=== PATIENT | male | born 1955 | race Caucasian/White ===

== ENCOUNTER 2017-10-29 15:25 | Inpatient (IN) ==
[2017-10-29] MEDS ORDERED: 0.9 % Sodium Chloride 500 ML IVC ONE (15:36)
[2017-10-29] MEDS ORDERED: Aspirin 81 MG TAB.CHEW PO ONE (15:36)
[2017-10-29] MEDS ORDERED: Ondansetron 4 MG/2 ML VIAL IVP ONE (15:36)
[2017-10-29] MEDS ORDERED: 0.9 % Sodium Chloride 2,000 ML ONE (15:41)
[2017-10-29] MEDS ORDERED: Isovue-370 500 ML INFUS..BTL IV ONE (15:49)
--- NOTE | 2017-10-29 15:49 | Emergency Department Note ---
Disposition Clinical Impression: NSTEMI (non-ST elevated myocardial infarction) Hypotension Qualifiers: Hypotension type: unspecified hypotension type Qualified Code(s): I95.9 - Hypotension, unspecified Disposition: Admitted As Inpatient Condition: Critical Referrals: Andre Aquino MD [Primary Care Provider] - Time of Disposition: 20:31 Chest Pain HPI - General Stated Complaint: CP/CHRISTINE Time Seen by Provider: 10/29/17 15:27 Source: patient, family () Mode of arrival: ambulatory Limitations: no limitations Vital Signs Reviewed: Yes Nursing Notes Reviewed: Yes - History of Present Illness HPI Narrative: 62-year-old male history of CAD s/p CABG x5 (2007) presents the emergency department with chest pain difficulty breathing. [place] to arrival when he began experiencing a pressure chest pain to midsternum. He had some associated shortness of breath diaphoresis and nausea. He has a history of chronic abdominal pain for the past week or so with nausea as well. Over the past week or so he has been having some nausea vomiting and episodes diarrhea. On arrival here patient is hypotensive systolic 80-90s. He has 2 IVs which are flowing with normal saline. Denies any recent injury or trauma. Patient was given aspirin. At this time concern for aortic dissection possible pulmonary embolism a myocardial infarction. EKG performed 153 on arrival normal sinus rhythm with right bundle branch block that appears consistent with prior performed 2014. Will attempt to stabilize him and obtain CT of the chest and abdomen. Patient's been given Zofran for his nausea. Patients had multiple bypass and stents placed. He has known vessel disease and was told that there is no more further intervention recommended at this time. Pt complaint: chest pain - Related Data Home Medications Medication Instructions Recorded Confirmed Aspirin 325 mg PO DAILY 12/28/16 12/28/16 Atorvastatin [Lipitor] 40 mg PO HS 12/28/16 12/28/16 BuPROPion XL (24 HR) [Wellbutrin 150 mg PO DAILY 12/28/16 12/28/16 XL] Buspirone HCl [Buspar] 30 mg PO DAILY 12/28/16 12/28/16 Clopidogrel [Plavix] 75 mg PO DAILY 12/28/16 12/28/16 Diltiazem CD (24hr) [Cardizem CD] 120 mg PO DAILY 12/28/16 12/28/16 Fenofibrate Nanocrystallized 160 mg PO DAILY 12/28/16 12/28/16 [Triglide] Insulin Glargine [Lantus] 60 unit SQ HS 12/28/16 12/28/16 Insulin LISPRO [Humalog] 0 - 20 unit SQ TID PRN 12/28/16 12/28/16 Isosorbide MONOnitrate (24 HR) 60 mg PO DAILY 12/28/16 12/28/16 [Imdur] Lansoprazole [Prevacid] 30 mg PO DAILY 12/28/16 12/28/16 Lisinopril/Hydrochlorothiazide 2 each PO DAILY 12/28/16 12/28/16 [Zestoretic 20-12.5 mg Tablet] Melatonin 10 mg PO HS PRN 12/28/16 12/28/16 Nitroglycerin [Nitrostat] 0.4 mg SL Q5M PRN 12/28/16 12/28/16 Ranolazine [Ranexa] 1,000 mg PO BID 12/28/16 12/28/16 Terazosin HCl 2 mg PO DAILY 12/28/16 12/28/16 Topiramate [Topamax] 25 mg PO BID 12/28/16 12/28/16 Trazodone HCl 50 mg PO HS 12/28/16 12/28/16 Venlafaxine XR (24 HR) [Effexor XR] 150 mg PO DAILY 12/28/16 12/28/16 Allergies Allergy/AdvReac Type Severity Reaction Status Date / Time acetaminophen [From Percocet] Allergy Hives Verified 12/28/16 08:52 Oxycodone [From Percocet] Allergy Hives Verified 12/28/16 08:52 Hydromorphone [From Dilaudid] AdvReac Chest Pain Verified 12/28/16 08:52 All systems ED: reviewed and negative except as stated. Review of Systems: As Per HPI Chest Pain PMH - Past Medical History Medical history: Reports: arthritis, cancer, coronary artery disease, CVA, diabetes, hyperlipidemia, hypertension, renal disease Surgical history: Reports: angioplasty/stent, cancer surgery, cholecystectomy, coronary bypass (CABG), knee replacement Psychiatric history: Reports: anxiety, depression, panic disorder - Social History Smoking Status: Former smoker Alcohol use: Reports: none Drug use: Reports: none Physical Exam - General Limitations: no limitations General appearance: alert, in no apparent distress - Head Head exam: atraumatic, normocephalic, normal inspection - Eye Eye exam: Present: normal appearance, PERRL, EOMI - ENT ENT exam: normal exam, normal oropharynx, mucous membranes moist - Neck Neck exam: Present: normal inspection, full ROM, trachea midline - Chest Chest inspection: Present: normal inspection, symmetric chest wall rise, tenderness (midsternum) - Respiratory Respiratory exam: Present: normal lung sounds bilaterally - Cardiovascular Cardiovascular exam: Present: regular rate, normal rhythm, normal heart sounds - Abdominal Exam Abdominal exam: Present: soft, tenderness, normal bowel sounds. Absent: distention, guarding, rebound, rigidity, pulsatile mass Abdominal tenderness: Present: diffuse - Extremities Exam Extremities exam: Present: normal inspection, full ROM, normal capillary refill. Absent: tenderness, pedal edema - Neurological Exam Neurological exam: Present: alert, oriented X3 - Psychiatric Psychiatric exam: Present: normal affect, normal mood - Skin Skin exam: Present: warm, dry, intact, normal color. Absent: rash, cyanosis, diaphoresis Course Course Narrative: Patient had minimal response with the fluid bolus. Chest x-ray showed some vascular congestion concerning for possible right heart failure or possible PE. Patient initially was meditating well with systolic of 80 it now appears slightly confused. Patient was sent to CT scan for chest abdomen and pelvis to evaluate for dissection pulmonary embolism. This was safely performed with nursing staff to follow him to the scanner. Patient came back in stable condition. - Reevaluation(s) Reevaluation #1: Review of the CT scans showed no acute abnormality consistent with pulmonary embolism or dissection. Suspect this is more of a and Tristen given his elevated troponin. Patient has been placed given full dose aspirin. We have consulted with interventional cardiologists and they agree with this management. At this time patient's blood pressure is responding to legal fed that was initially infused through the peripheral line but has been switch after right femoral central venous catheter has been placed. Patient will require intensive care unit admission given his hypotension and NSTEMI critical condition. Impression is hypotension and NSTEMI/ Reevaluation #2: Spoke to accepting hospitalist Dr. Rainey, agree that at this time arterial line is not necessary. Patient has right femoral CVC placed successfully. - Consultations Consultation #1: Spoke to on-call acting manager Dr. Cabral regarding patient's status. Given his persistent hypotension despite 2 L of normal saline fluid bolus he continues to be hypotensive. Given his extensive cardiac history suspect this is likely cardiac in nature. His EKG did not show any acute ischemic findings. Consistent incomplete right bundle branch block. Patients troponin was elevated 0.69 concerning for NSTEMI. We called requesting any additional therapy or intervention. Dr. Cabral Blease with is elevated creatinine this could be likely dehydration related in the troponin elevation is typically seen and bypass patients with their dehydrated. He did recommend they suffered chest x-ray that there could be a heart failure components into be cautious with any additional fluid resuscitation. He did recommend inotropic such as levophed to help with his blood pressure. If he does not respond with the basal pressor possible aortic balloon pump would be considered. Recommend to repeat the troponin and called personnel research psychologist back with any additional changes. Time: 17:30 Consultation #2: The patient's troponin has downtrending. He is more awake and oriented. His blood pressure has responded to the basal pressor. At this time he appropriated for intensive care unit. Given his history of severe vessel disease there is no emergent need for intervention. Consideration for short- term aortic balloon pump hypotension persists. Patient has a right femoral venous central catheter placed to allow vasopressor usage. Patient accepted for ICU admission by Dr. Ruiz. Vital Signs Temperature 98.8 F 10/29/17 15:32 Pulse Rate 100 10/29/17 15:32 Respiratory Rate 18 10/29/17 15:32 Blood Pressure 80/61 10/29/17 15:32 O2 Sat by Pulse Oximetry 96 10/29/17 15:32 Temperature 98.8 F 10/29/17 15:32 Pulse Rate 76 10/29/17 20:19 Respiratory Rate 18 10/29/17 20:19 Blood Pressure 113/65 10/29/17 20:19 O2 Sat by Pulse Oximetry 96 10/29/17 20:19 Oxygen Delivery Oxygen Delivery Room Air Procedures - Central Line Placement Right Femoral Central Line Inserted*: Yes Central Line Catheter Replacement*: No Central Line Insertion: elective, emergent Consent Obtained: written consent Procedural Pause: verify patient name and date of , timeout performed per policy, venancio and assess the site, assemble equipment and verify supplies, perform hand hygiene Patient Placed on Monitor/Pulse Ox: Yes During the Procedure: clinician is wearing sterile gloves, cap, mask,& gown during insertion, sterile field and sterile technique are maintained, patient's face is covered with drape or mask and wearing a cap, everyone in room is wearing a mask Central Line Prep: Chlorhexidine scrub Prep the Procedure Site: apply chloraprep to the skin using a back and forth scrubbing motion, apply chloraprep for 30 seconds (upper body), 1-2 min ( femoral sites), allow prep to dry, drape the patient with a full body drape Local Anesthetic: lidocaine 1% Amount of anesthesia used (mL): 3 Ultrasound Used for Placement: Yes Central Line Lumen Inserted: triple Post Procedure: sutured in place, good blood return, all ports aspirated, flushed, capped, sterile dressing applied, guide wire removed and visualized Patient Tolerated Procedure: well, no complications Complications: none Name of Clinician Inserting Central Line: Craig Hull DO Date: 10/29/17 Time: 20:34 Chest Pain - MDM Narrative Medical decision making narrative: Patient was discussed with my attending physician who agrees with ED management and final disposition. They independently evaluated the patient. Please refer to their attestation to this encounter for additional information. This note was generated by [employer] voice recognition software and as a result grammatical or spelling errors may occur using this program. - Medical Records Medical records reviewed: Yes I reviewed the patient's medical records. - Lab Data Lab results reviewed: Yes I reviewed the patient's lab results. Result diagrams: 10/29/17 15:53 10/29/17 15:53 Lab Results 10/29/17 10/29/17 10/29/17 Range/Units 15:39 15:53 15:53 WBC (4.3-11.1) K/mcL RBC (4.19-5.50) M/mcL Hgb (12.9-16.9) g/dL Hct (37.5-50.1) % MCV (83.0-100.0) fL MCH (28.0-33.3) pg MCHC (31.6-35.5) g/dL RDW (11.5-14.5) % Plt Count (140-400) K/mcL MPV (9.4-12.4) fL Seg Neutrophils % % Lymphocytes % % Monocytes % % Eosinophils % % Neutrophils # (1.6-8.9) K/mcL Lymphocytes # (0.6-4.6) K/mcL Monocytes # (0.0-1.3) K/mcL Eosinophils # (0.0-0.6) K/mcL Reactive Lymphocytes (Not Present) Platelet Estimate (Normal) PT 10.6 (9.4-12.1) Seconds INR 1.0 APTT 28.7 (26.0-36.0) Seconds Sodium 132 L (136-145) mEq/L Potassium 4.0 (3.5-5.1) mEq/L Chloride 98 (98-107) mEq/L Carbon Dioxide 22 L (23-29) mEq/L BUN 21 (8-23) mg/dL Creatinine 1.80 H (0.70-1.30) mg/dL Est GFR ( Amer) 46 L (> 60) Est GFR (Non-Af Amer) 38 L (> 60) BUN/Creatinine Ratio 12 (6-26) Glucose 91 (70-105) mg/dL POC Glucose 138 H (70-99) mg/dL Calculated Osmolality 277 L (280-300) Calcium 9.5 (8.6-10.3) mg/dL Total Bilirubin 0.6 (0.3-1.0) mg/dL Direct Bilirubin 0.2 (0.0-0.2) mg/dL Indirect Bilirubin 0.4 (0.0-1.2) mg/dL AST 20 (13-39) Units/L ALT 21 (7-52) Units/L Alkaline Phosphatase 68 (34-104) Units/L Troponin I (< 0.04) ng/mL B-Natriuretic Peptide (Less than 100) pg/mL Serum Total Protein 6.7 (6.4-8.9) g/dL Albumin 4.3 (3.5-5.7) g/dL Globulin 2.4 (2.4-3.5) g/dL Albumin/Globulin Ratio 1.8 (1.1-2.2) Beta-Hydroxybutyric Acd (0.02-0.27) mmol/L Blood Type Antibody Screen 10/29/17 10/29/17 10/29/17 Range/Units 15:53 15:53 15:53 WBC 8.9 (4.3-11.1) K/mcL RBC 4.04 L (4.19-5.50) M/mcL Hgb 13.5 (12.9-16.9) g/dL Hct 37.4 L (37.5-50.1) % MCV 92.6 (83.0-100.0) fL MCH 33.4 H (28.0-33.3) pg MCHC 36.1 H (31.6-35.5) g/dL RDW 12.4 (11.5-14.5) % Plt Count 299 (140-400) K/mcL MPV 8.8 L (9.4-12.4) fL Seg Neutrophils % 61.0 % Lymphocytes % 34.0 % Monocytes % 4.0 % Eosinophils % 1.0 % Neutrophils # 5.4 (1.6-8.9) K/mcL Lymphocytes # 3.0 (0.6-4.6) K/mcL Monocytes # 0.4 (0.0-1.3) K/mcL Eosinophils # 0.1 (0.0-0.6) K/mcL Reactive Lymphocytes Present A (Not Present) Platelet Estimate Normal (Normal) PT (9.4-12.1) Seconds INR APTT (26.0-36.0) Seconds Sodium (136-145) mEq/L Potassium (3.5-5.1) mEq/L Chloride (98-107) mEq/L Carbon Dioxide (23-29) mEq/L BUN (8-23) mg/dL Creatinine (0.70-1.30) mg/dL Est GFR ( Amer) (> 60) Est GFR (Non-Af Amer) (> 60) BUN/Creatinine Ratio (6-26) Glucose (70-105) mg/dL POC Glucose (70-99) mg/dL Calculated Osmolality (280-300) Calcium (8.6-10.3) mg/dL Total Bilirubin (0.3-1.0) mg/dL Direct Bilirubin (0.0-0.2) mg/dL Indirect Bilirubin (0.0-1.2) mg/dL AST (13-39) Units/L ALT (7-52) Units/L Alkaline Phosphatase (34-104) Units/L Troponin I (< 0.04) ng/mL B-Natriuretic Peptide 44 (Less than 100) pg/mL Serum Total Protein (6.4-8.9) g/dL Albumin (3.5-5.7) g/dL Globulin (2.4-3.5) g/dL Albumin/Globulin Ratio (1.1-2.2) Beta-Hydroxybutyric Acd < 0.10 (0.02-0.27) mmol/L Blood Type Antibody Screen 10/29/17 10/29/17 10/29/17 Range/Units 15:53 17:39 17:39 WBC (4.3-11.1) K/mcL RBC (4.19-5.50) M/mcL Hgb (12.9-16.9) g/dL Hct (37.5-50.1) % MCV (83.0-100.0) fL MCH (28.0-33.3) pg MCHC (31.6-35.5) g/dL RDW (11.5-14.5) % Plt Count (140-400) K/mcL MPV (9.4-12.4) fL Seg Neutrophils % % Lymphocytes % % Monocytes % % Eosinophils % % Neutrophils # (1.6-8.9) K/mcL Lymphocytes # (0.6-4.6) K/mcL Monocytes # (0.0-1.3) K/mcL Eosinophils # (0.0-0.6) K/mcL Reactive Lymphocytes (Not Present) Platelet Estimate (Normal) PT (9.4-12.1) Seconds INR APTT (26.0-36.0) Seconds Sodium (136-145) mEq/L Potassium (3.5-5.1) mEq/L Chloride (98-107) mEq/L Carbon Dioxide (23-29) mEq/L BUN (8-23) mg/dL Creatinine (0.70-1.30) mg/dL Est GFR ( Amer) (> 60) Est GFR (Non-Af Amer) (> 60) BUN/Creatinine Ratio (6-26) Glucose (70-105) mg/dL POC Glucose (70-99) mg/dL Calculated Osmolality (280-300) Calcium (8.6-10.3) mg/dL Total Bilirubin (0.3-1.0) mg/dL Direct Bilirubin (0.0-0.2) mg/dL Indirect Bilirubin (0.0-1.2) mg/dL AST (13-39) Units/L ALT (7-52) Units/L Alkaline Phosphatase (34-104) Units/L Troponin I 0.69 H* 0.52 H* (< 0.04) ng/mL B-Natriuretic Peptide (Less than 100) pg/mL Serum Total Protein (6.4-8.9) g/dL Albumin (3.5-5.7) g/dL Globulin (2.4-3.5) g/dL Albumin/Globulin Ratio (1.1-2.2) Beta-Hydroxybutyric Acd (0.02-0.27) mmol/L Blood Type A POSITIVE Antibody Screen NEGATIVE - Radiology Data Radiology results reviewed: Yes I reviewed the patient's radiology results. Chest X-Ray 10/29/17 15:37 IMPRESSION: 1. No acute findings in the chest. 2. Pulmonary vascular congestion. D/ / Rene Arnold MD / Rene Arnold MD Interpreting Provider: Rene Arnold MD Abdomen/Pelvis CTA 10/29/17 15:49 IMPRESSION: No acute process in the chest, abdomen or pelvis. D/ / 10/29/2017 18:16:55 Kaushik Beltran MD / katherine Interpreting Provider: Kaushik Beltran MD Chest CTA 10/29/17 15:49 IMPRESSION: No acute process in the chest, abdomen or pelvis. D/ / 10/29/2017 18:16:55 Kaushik Beltran MD / katherine Interpreting Provider: Kaushik Beltran MD Head CT 10/29/17 17:15 IMPRESSION: No acute intracranial abnormality. D/ / 10/29/2017 17:59:53 Kaushik Beltran MD / katherine Interpreting Provider: Kaushik Beltran MD - EKG Data EKG attestation: Yes I reviewed and interpreted this EKG. EKG results narrative: EKG performed 1537 normal sinus rhythm 98 beats per minute, incomplete right bundle branch block QRS 98, no ST elevation or depression, old Q waves in inferior leads, no T wave inversion. Compared to his prior EKG performed 2014 shows similar consistent findings of a incomplete right bundle branch block. No acute ischemic changes at this time. Heart Score - Score History: Slightly Suspicious EKG: Non Specific repolarisation Disturbance Age: 45-65 Risk Factors: Equal/Greater than 3 risk factor or history of atherosclerotic disease Troponin: Greater than 3x normal limit HEART Score Total: 6 Critical Care Time Critical Care Time: Yes Total Critical Care Time: 70 Attestation: Critical care time 35 minutes managing patient's chest pain and hypotension. Attestation Statement - Attestation Attestation: Patient was seen with resident physician. I reviewed the history, physical, assessment and plan, and agree with the findings. I also personally evaluated this patient and had [id number] time with this patient. 62-year-old male presents to the emergency Department chief complaint of chest pressure. Midsternal radiates across both sides it does not radiate to other areas. He said some minimal abdominal discomfort with it. Does not radiate to his back or to his shoulder. He has a history of coronary artery disease he has had a 5 vessel bypass around 10 years ago. He is also had stents one time 9010 years ago. He said he is unable to have additional stents because of the severity of disease. He also complains of headache. He did not take any nitroglycerin her blood pressure medicine today. Denies fevers chills. He has had some shortness of breath with the chest pain. Remainder review of systems reviewed and negative except as above. Physical exam vital signs patient is hypotensive on arrival. Heart rate was stable. ENT is unremarkable. Heart regular rhythm and rate. Lungs clear. Abdomen soft minimal tenderness in the midepigastric area. Extremities no swelling otherwise unremarkable. Neurologically intact. Skin no rashes. Psych patient is anxious. ED course multiple IV sites were obtained. Patient was started on intravenous hydration. His blood pressure was too low for nitrates or for pain medication. He was given an aspirin. After 2 L he continued to be hypotensive. We had a delay with getting his troponin result from the laboratory. After his fluids were given he was mentating well but his blood pressure was still 88/50's. We obtained a CT scan of the chest abdomen pelvis to rule out dissection and PE. We sent a full team on environmental monitoring technician with him because of his hypotension. We also discussed the case with interventional cardiology. He recommended starting him on a pressor his blood pressure up. We eventually were able to titrate to systolic of about 120 which improved most of his symptoms including chest pain. His EKG did not show acute ischemic change, and a repeat EKG also did not show ischemic changes. It is unclear if his hypotension is related to systolic dysfunction dehydration or some combination of all the above. He did not appear to be anemic to have significant blood loss. Because of his need for pressors and ICU admission a central line was placed into the right groin. This was performed by resident physician. I assisted and observed the entire procedure. Critical care time charted was exclusive of time it took to do the central line. We spoke with interventional cardiology and the hospitalist service to arrange for admission to the ICU. Patient was doing well at the time of transport.
[2017-10-29 16:10] LABS: Eosinophils # 0.1 K/mcL (0.0-0.6); Hematocrit 37.4 % (37.5-50.1); Hemoglobin 13.5 g/dL (12.9-16.9); Mean Corpuscular HGB Conc 36.1 g/dL (31.6-35.5); Mean Corpuscular Hemoglobin 33.4 pg (28.0-33.3); Mean Corpuscular Volume 92.6 fL (83.0-100.0); Mean Platelet Volume 8.8 fL (9.4-12.4); Platelet Count 299 K/mcL (140-400); Red Blood Count 4.04 M/mcL (4.19-5.50); Red Cell Distribution Width 12.4 % (11.5-14.5)
[2017-10-29 16:15] LABS: Prothrombin Time 10.6 Seconds (9.4-12.1)
[2017-10-29 16:18] LABS: Activated Partial Thrombo Time 28.7 Seconds (26.0-36.0)
[2017-10-29 16:32] LABS: Monocytes # 0.4 K/mcL (0.0-1.3); Neutrophils # 5.4 K/mcL (1.6-8.9); Platelet Estimate Normal (Normal); Reactive Lymphocytes Present (Not Present)
[2017-10-29 16:35] LABS: Albumin 4.3 g/dL (3.5-5.7); Albumin/Globulin Ratio 1.8 (1.1-2.2); Bilirubin,Direct 0.2 mg/dL (0.0-0.2); Bilirubin,Indirect 0.4 mg/dL (0.0-1.2); Bilirubin,Total 0.6 mg/dL (0.3-1.0); Globulin 2.4 g/dL (2.4-3.5); Total Protein 6.7 g/dL (6.4-8.9)
[2017-10-29] MEDS ORDERED: 0.9 % Sodium Chloride 1,000 ML ONE ×2 (16:54→18:48)
[2017-10-29 17:13] LABS: Calcium 9.5 mg/dL (8.6-10.3)
[2017-10-29] MEDS: Norepinephrine 4 MG in D5% in Water 250 ML IVC SCH (18:38)
[2017-10-29] MEDS ORDERED: OXYCODONE Oral CONC 10 MG/0.5 ML ORAL.SYG SL PRN ×2 (20:02)
[2017-10-29] MEDS ORDERED: Naloxone 0.4 MG/ML INJ IVP PRN ×2 (20:02)
[2017-10-29] MEDS ORDERED: D5% in Water 1,000 ML IVC PRN (20:05)
[2017-10-29] MEDS ORDERED: Dextrose Gel 15 GM/37.5 ML TUBE PO PRN ×2 (20:05)
[2017-10-29] MEDS ORDERED: *HR* Dextrose 50 % in Water (Syg) 50 ML SYRINGE IVP PRN (20:05)
[2017-10-29] MEDS ORDERED: *HR* Heparin 5,000 UNIT/ML VIAL IVP ONE (20:06)
[2017-10-29] MEDS ORDERED: *HR* Heparin 5,000 UNIT/ML VIAL IVP PRN ×2 (20:06)
[2017-10-29] MEDS ORDERED: Insulin LISPRO 300 UNITS/3 ML VIAL SQ SCH (21:00)
--- NOTE | 2017-10-29 21:26 | Internal Med History&Physical ---
<Jonatan Daniels - Last Filed: 10/29/17 21:49> Date of Encounter: 10/29/17 Time of Encounter: 21:28 Assessment and Plan (1) NSTEMI (non-ST elevated myocardial infarction) Current visit: Yes Status: Acute The patient presents with chest pain, dyspnea, visual changes and hypotension with troponin elevation of 0.69 without ischemic EKG changes. Continue to trend serial troponins. Repeat troponin is down trending. Suspect right sided insult given his hemodynamic instability. Interventional cardiology consulted by the emergency department and recommended vasopressor support. Heparin gtt NPO at midnight (2) Shock Current visit: Yes Status: Acute Presented hypotensive refractory to IV fluid resuscitation. NSTEMI with peak troponin of 0.69. Potential for right-sided involvement given hypotension. Continue Levophed with goal MAP >60 Echo ordered (3) NÉSOTR (acute kidney injury) Current visit: Yes Status: Acute Serum creatinine 1.80. He did receive a significant dye load for angiogram. Daily renal function panel. Continue IV fluid hydration. Avoid nephrotoxic agents. 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 transplanted heart: unspecified whether [place] or transplanted heart Associated angina: with unspecified angina Qualified Code (s): I25.119 - Atherosclerotic heart disease of [place] coronary artery with unspecified angina pectoris (6) Hyperlipidemia Current visit: Yes Status: Chronic NPO Hold statin Qualifiers: Hyperlipidemia type: unspecified Qualified Code(s): E78.5 - Hyperlipidemia , unspecified (7) Hypertension Current visit: Yes Status: Chronic Hold antihypertensives in the setting of shock Qualifiers: Hypertension type: unspecified Qualified Code(s): I10 - Essential (primary ) hypertension Internal Medicine - H&P: HPI Chief complaint: chest pain, visual changes Admitted From: Emergency Dept Plans for Post Hospital Care: Home History of present illness: Mr. Marquis is a 62 year old male with a past medical history of CABG in 2007 , one vessel stent in 2009, diabetes, hypertension, hyperlipidemia who presented to the emergency department on 10/29/17 with complaints of chest pain, shortness of breath, diaphoresis, nausea and visual changes. Patient reports he was at his usual state of health until around 2 PM [place]. He reports that he first had changes in vision and it seemed to be widely. He reports not long after he started developing chest pain that went across his chest with associated shortness of breath, diaphoresis and nausea. Reports the symptoms are actually dissimilar to his prior cardiac symptoms when he required a stent and bypass. He denies any recent illnesses. He otherwise localizes no other complaints. Patient seen and evaluated at bedside in the emergency department. He vocalizes no new complaints. He was noted to be hypotensive upon arrival. His workup there revealed an EKG with normal sinus rhythm with occasional PACs with normal intervals and ST-T wave appearance. He does have Q waves in lead 3 and aVF. Initial troponin of 0.6 sign which actually improved to 0.5 to on repeat. Also noted to have an acute kidney injury with a serum creatinine of 1.8. He did receive a significant dye load for an angiogram of his chest abdomen and pelvis. Angiogram of the chest abdomen and pelvis as well as head CT without acute abnormality. Despite 2 L of IV fluids he remained hypotensive necessitating vasopressor support. Interventional cardiology was consulted and recommended levophed. The patient is admitted to the ICU under the care of the hospitalist service for further management and evaluation. Past Med Surg Social Fam HX - Past Medical History Attestation: Yes The following information was validated with the patient. Source: patient Medical history: arthritis, cancer, coronary artery disease, CVA, diabetes, hyperlipidemia, hypertension, renal disease Psychiatric history: anxiety, depression, panic disorder - Past Surgical History Surgical History: angioplasty/stent, cancer surgery, cholecystectomy, coronary bypass (CABG), knee replacement - Social History Smoking Status: Former smoker Smokeless Tobacco Status: No Alcohol use: none Drug use: none Internal Medicine - H&P: Meds Aspirin 325 mg PO DAILY 12/28/16 [History] Atorvastatin [Lipitor] 40 mg PO HS 12/28/16 [History] BuPROPion XL (24 HR) [Wellbutrin XL] 150 mg PO DAILY 12/28/16 [History] Buspirone HCl [Buspar] 30 mg PO DAILY 12/28/16 [History] Clopidogrel [Plavix] 75 mg PO DAILY 12/28/16 [History] Diltiazem CD (24hr) [Cardizem CD] 120 mg PO DAILY 12/28/16 [History] Fenofibrate Nanocrystallized [Triglide] 160 mg PO DAILY 12/28/16 [History] Insulin Glargine [Lantus] 60 unit SQ HS 12/28/16 [History] Insulin LISPRO [Humalog] 0 - 20 unit SQ TID PRN 12/28/16 [History] Isosorbide MONOnitrate (24 HR) [Imdur] 60 mg PO DAILY 12/28/16 [History] Lansoprazole [Prevacid] 30 mg PO DAILY 12/28/16 [History] Lisinopril/Hydrochlorothiazide [Zestoretic 20-12.5 mg Tablet] 2 each PO DAILY [History] Melatonin 10 mg PO HS PRN 12/28/16 [History] Nitroglycerin [Nitrostat] 0.4 mg SL Q5M PRN 12/28/16 [History] Ranolazine [Ranexa] 1,000 mg PO BID 12/28/16 [History] Terazosin HCl 2 mg PO DAILY 12/28/16 [History] Topiramate [Topamax] 25 mg PO BID 12/28/16 [History] Trazodone HCl 50 mg PO HS 12/28/16 [History] Venlafaxine XR (24 HR) [Effexor XR] 150 mg PO DAILY 12/28/16 [History] 3 Allergy/AdvReac Type Severity Reaction Status Date / Time acetaminophen [From Percocet] Allergy Hives Verified 12/28/16 08:52 Oxycodone [From Percocet] Allergy Hives Verified 12/28/16 08:52 Hydromorphone [From Dilaudid] AdvReac Chest Pain Verified 12/28/16 08:52 All Systems PM: A 10-system review of systems was performed and is negative for pertinent findings except as documented above in the HPI. - Constitutional Constitutional: as per HPI - EENT Eyes: as per HPI Ears: as per HPI Nose, mouth and throat: as per HPI - Breasts Breasts: as per HPI - Cardiovascular Cardiovascular ROS IM: as per HPI - Respiratory Respiratory: as per HPI - Gastrointestinal Gastrointestinal: as per HPI - Genitourinary Genitourinary ROS male: as per HPI - Musculoskeletal Musculoskeletal ROS IM: as per HPI - Integumentary Integumentary IM: as per HPI - Neurological Neurological ROS: as per HPI - Psychiatric Psychiatric: as per HPI - Endocrine Endocrine IM: as per HPI - Hematologic/Lymphatic Hematologic/Lymphatic: as per HPI - Allergic/Immunologic Allergic/Immunologic: as per HPI - Constitutional Vitals: Temp Pulse Resp BP Pulse Ox 98.8 F 76 18 133/74 96 10/29/17 15:32 10/29/17 20:19 10/29/17 21:12 10/29/17 21:12 10/29/17 20:19 General appearance: Present: pleasant, no acute distress, answers questions appropriately - Head Head exam: Present: atraumatic, normal inspection, normocephalic - Eye Eye exam: Present: normal appearance - Neck Neck exam general surgery: Present: full ROM - Respiratory Respiratory exam: Present: CTAB - Cardiovascular Cardiovascular exam: Present: RRR, +S1, +S2. Absent: diastolic murmur, systolic murmur - GI/Abdominal GI/Abdominal exam: Present: soft. Absent: distended, guarding - Extremities Exam Extremities exam: Present: full ROM, normal inspection - Neurological Exam Neurological exam: Present: alert, no focal deficits - Skin Skin exam: Present: dry, intact Internal Med - H&P Results - Labs CBC & Chem 7: 10/29/17 15:53 10/29/17 15:53 - EKG Data -: EKG Interpreted by Myself (Sinus rhythm with normal intervals and nml ST-T segments with inf Q waves) <Parrish Rainey T - Last Filed: 10/29/17 23:11> Date of Encounter: 10/29/17 Internal Medicine - H&P: HPI History of present illness: Mr. Marquis is a 62 year old male All Systems PM: A 10-system review of systems was performed and is negative for pertinent findings except as documented above in the HPI. - Constitutional Vitals: Temp Pulse Resp BP Pulse Ox 98.8 F 78 16 103/65 97 10/29/17 15:32 10/29/17 22:03 10/29/17 22:03 10/29/17 22:03 10/29/17 22:03 Internal Med - H&P Results - Labs CBC & Chem 7: 10/29/17 15:53 10/29/17 15:53 - Attending Attestation 62-year-old male seen and evaluated in the emergency room at the bedside. Past medical history of coronary artery disease status post coronary artery bypass graft several years ago, diabetes mellitus, hyperlipidemia, and hypertension. Patient presented with sudden history of blurry vision and seeing floaters associated with substernal chest pain. He had chest pain it was substernal central pressure-like and non-radiating. There was associated shortness of breath at rest. The patient presented to the ER 45 minutes after onset of symptoms. He was hypotensive on presentation, initial troponin was 0.68, EKG was unremarkable, patient presented with acute kidney injury with creatinine of 1.8. Chest x-ray was unremarkable except for pulmonary vascular congestion, BNP was negative. During evaluation, patient was lying flat not in any form of distress, chest is clear to auscultation bilaterally, negative insight flat, no new murmurs, S1-S2 only. Regular rhythm. Abdomen is benign. No pedal edema. Right femoral central venous access intact with clean dressing. Labs and imaging reviewed and stated as above. Patient will be admitted to the intensive care unit for management of an STEMI with associated cardiogenic shock suspected right-sided myocardial infarction cardiology has been consulted by the ER, start the patient on heparin drip, continue aspirin, hold home medications including long-acting nitrates, continue Levophed. Echocardiogram in the morning. Condition is critical, prognosis is fair. Plan of care discussed with patient. The rest of the details as in Dr. Nowak documentation.
[2017-10-29] MEDS: 0.9 % Sodium Chloride 1,000 ML IVC SCH (23:25)
[2017-10-29] MEDS: Heparin 25,000 UNIT/500 ML D5W 25,000 UNIT/500 ML BAG IVC SCH (23:55)
[2017-10-30 05:34] LABS: Eosinophils # 0.1 K/mcL (0.0-0.6); Hematocrit 34.9 % (37.5-50.1); Hemoglobin 12.6 g/dL (12.9-16.9); Lymphocytes # 2.1 K/mcL (0.6-4.6); Mean Corpuscular HGB Conc 36.1 g/dL (31.6-35.5); Mean Corpuscular Hemoglobin 33.6 pg (28.0-33.3); Mean Corpuscular Volume 93.1 fL (83.0-100.0); Mean Platelet Volume 8.9 fL (9.4-12.4); Platelet Count 255 K/mcL (140-400); Red Blood Count 3.75 M/mcL (4.19-5.50); Red Cell Distribution Width 13.1 % (11.5-14.5)
[2017-10-30 05:52] LABS: BUN/Creatinine Ratio 17 (6-26); Blood Urea Nitrogen 20 mg/dL (8-23); Calcium 8.7 mg/dL (8.6-10.3); Carbon Dioxide 24 mEq/L (23-29); Chloride 104 mEq/L (98-107); Glucose 242 mg/dL (70-105); Osmolality,Calculated 293 (280-300); Potassium 3.8 mEq/L (3.5-5.1); Sodium 136 mEq/L (136-145); eGFR For African Americans > 60 (> 60); eGFR For Non-African Americans > 60 (> 60)
[2017-10-30 05:54] LABS: Monocytes # 0.4 K/mcL (0.0-1.3); Platelet Estimate Normal (Normal)
[2017-10-30 05:55] LABS: Reactive Lymphocytes Present (Not Present); Toxic Granulation Present (Not Present)
[2017-10-30] MEDS ORDERED: Insulin LISPRO 300 UNITS/3 ML VIAL SQ SCH (07:30)
[2017-10-30 07:31] LABS: Estimated Average Glucose 243 mg/dl; Hemoglobin A1C 10.1 %
[2017-10-30] MEDS: 0.9 % Sodium Chloride 1,000 ML IVC SCH (08:10)
--- NOTE | 2017-10-30 08:11 | Pulmonology Consult Note ---
<Edgardo Presley M - Last Filed: 10/30/17 10:22> Date of Encounter: 10/30/17 Medications and Allergies Aspirin 325 mg PO DAILY 12/28/16 [History] Buspirone HCl [Buspar] 30 mg PO DAILY 12/28/16 [History] Clopidogrel [Plavix] 75 mg PO DAILY 12/28/16 [History] Diltiazem CD (24hr) [Cardizem CD] 120 mg PO DAILY 12/28/16 [History] Fenofibrate Nanocrystallized [Triglide] 160 mg PO DAILY 12/28/16 [History] Insulin Glargine [Lantus] 60 unit SQ HS 12/28/16 [History] Insulin LISPRO [Humalog] 0 - 20 unit SQ TID PRN 12/28/16 [History] Isosorbide MONOnitrate (24 HR) [Imdur] 180 mg PO DAILY 12/28/16 [History] Lansoprazole [Prevacid] 30 mg PO DAILY 12/28/16 [History] Lisinopril/Hydrochlorothiazide [Zestoretic 20-12.5 mg Tablet] 2 each PO DAILY [History] Melatonin 10 mg PO HS PRN 12/28/16 [History] Nitroglycerin [Nitrostat] 0.4 mg SL Q5M PRN 12/28/16 [History] Ranolazine [Ranexa] 1,000 mg PO BID 12/28/16 [History] Terazosin HCl 2 mg PO DAILY 12/28/16 [History] Trazodone HCl 50 mg PO HS 12/28/16 [History] Venlafaxine XR (24 HR) [Effexor XR] 150 mg PO DAILY 12/28/16 [History] Atorvastatin Calcium [Lipitor] 80 mg PO HS 10/30/17 [History] BuPROPion XL (24 HR) [Wellbutrin XL] 300 mg PO DAILY 10/30/17 [History] Gabapentin [Neurontin] 800 mg PO TID 10/30/17 [History] 3 Allergy/AdvReac Type Severity Reaction Status Date / Time acetaminophen [From Percocet] Allergy Hives Verified 12/28/16 08:52 Oxycodone [From Percocet] Allergy Hives Verified 12/28/16 08:52 Hydromorphone [From Dilaudid] AdvReac Chest Pain Verified 12/28/16 08:52 All Systems: The remainder of the systems were reviewed and are negative Physical Examination Vital Signs: Vital Signs, Last 4 Hours Pulse Resp BP Pulse Ox 10/30/17 09:00 93 18 114/71 96 10/30/17 08:00 96 18 118/73 96 10/30/17 07:00 74 18 103/72 94 10/30/17 06:00 91 16 130/75 95 Results - Laboratory Findings CBC and BMP: 10/30/17 05:21 10/30/17 05:21 PT/INR, D-dimer PT 10.6 Seconds (9.4-12.1) 10/29/17 15:53 Abnormal lab findings: Abnormal lab results WBC 11.5 K/mcL (4.3-11.1) H 10/30/17 05:21 RBC 3.75 M/mcL (4.19-5.50) L 10/30/17 05:21 Hgb 12.6 g/dL (12.9-16.9) L 10/30/17 05:21 Hct 34.9 % (37.5-50.1) L 10/30/17 05:21 MCH 33.6 pg (28.0-33.3) H 10/30/17 05:21 MCHC 36.1 g/dL (31.6-35.5) H 10/30/17 05:21 MPV 8.9 fL (9.4-12.4) L 10/30/17 05:21 Neutrophils # 9.0 K/mcL (1.6-8.9) H 10/30/17 05:21 Reactive Lymphocytes Present (Not Present) A 10/30/17 05:21 Toxic Granulation Present (Not Present) A 10/30/17 05:21 APTT 36.1 Seconds (26.0-36.0) H 10/30/17 05:21 Glucose 242 mg/dL (70-105) H 10/30/17 05:21 POC Glucose 106 mg/dL (70-99) H 10/29/17 21:21 Hemoglobin A1c 10.1 % (-5.6) H 10/30/17 05:21 Troponin I 0.29 ng/mL (< 0.04) H* 10/30/17 05:21 TSH 0.227 mcIU/mL (0.340-5.600) L 10/30/17 05:21 - Clinical Findings Intake & Output: Intake & Output 10/29/17 10/30/17 10/30/17 23:59 07:59 15:59 Intake Total 50 / 50 1467 / 1467 365 / 365 Output Total 550 / 550 2975 / 2975 Balance -500 / -500 -1508 / -1508 365 / 365 Weight 96.2 kg Consult Discharge Plan - Plan Referrals: Andre Aquino MD [Primary Care Provider] - - Attending Attestation I examined this patient and my medical decision-making was reviewed with the Resident Physician. I agree with the documented findings, disposition and treatment plan as described except to the extent set forth below. Patient seen and examined. Labs, radiology, chart personally reviewed. 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 Cardiology consult. Patient is on heparin. GI: Nutrition per dietary and GI prophylaxis per routine Heme: DVT prophylaxis per routine ID: No evidence of infections. Renal; urine out put and renal funtion reviewed Endorcine: blood glucose is monitored. Uncontrolled, will need to resume his Insulin when he start oral diet. Lines: all lines checked and no evidence of infections Skin: skin care to prevent pressure ulcers per nursing routine care Patient is stable to be transferred to telemetry now after cardiology evaluation. <Rene Stokes - Last Filed: 10/30/17 13:31> Date of Encounter: 10/30/17 Time of Encounter: 09:00 Assessment and Plan (1) NSTEMI (non-ST elevated myocardial infarction) Current Visit: Yes Status: Acute Chest pain, positive EKG Changes, elevated troponin The patient does have significant coronary artery disease history His last cardiac workup was a negative, or at least he was told that there is nothing that can be done Although his troponins are trending down, it is likely a good idea to attempt a left heart catheter We will continue the heparin drip that was started on arrival Cardiology is on board, appreciate recommendations (2) Hypotension Current Visit: Yes Status: Acute Patient was hypotensive on arrival Resolved with the addition of 2.5 L of fluid as well as use of levophed The patient has been off Levophed this morning and has not had any issues with hypotension We will continue to monitor Qualifiers: Hypotension type: unspecified hypotension type Qualified Code(s): I95.9 - Hypotension, unspecified (3) NÉSTOR (acute kidney injury) Current Visit: Yes Status: Acute Acute kidney injury on arrival, serum creatinine 1.8 Kidney function has since improved with addition of fluids The patient will be receiving significant IV dye load We will continue to hydrate as needed, check BMP in the morning (4) CAD (coronary artery disease) Current Visit: Yes Status: Chronic CAD status post CABG in 2007 and PCI in 2008 Due to the patient's elevated troponin symptoms, he is going for left heart catheter today Management per cardiology Qualifiers: Coronary Disease-Associated Artery/Lesion type: unspecified vessel or lesion type [place] vs. transplanted heart: unspecified whether [place] or transplanted heart Associated angina: with unspecified angina Qualified Code (s): I25.119 - Atherosclerotic heart disease of [place] coronary artery with unspecified angina pectoris (5) Diabetes Current Visit: Yes Status: Chronic Poorly controlled diabetes with peripheral neuropathy Patient has elevated glucose, A1c is 10.1 He will likely require adjustment or modification of his insulin regimen at home At this time we will use sliding scale insulin for blood glucose management Qualifiers: Diabetes mellitus type: type 2 Diabetes mellitus alf insulin use: unspecified template inspector insulin use status Diabetes mellitus complication status : with unspecified complications Qualified Code(s): E11.8 - Type 2 diabetes mellitus with unspecified complications (6) DVT prophylaxis Current Visit: Yes Status: Acute Currently on heparin drip, will require subcutaneous heparin status post left heart cath History of Present Illness Consult date: 10/30/17 Requesting physician: Parrish Rainey Reason for consult: chest pain, other (hypotension) Chief complaint: Chest pain History of present illness: Mr. Marquis is a 62-year-old gentleman with a past medical history of CABG with 5 vessel disease in 2007, one-vessel stent in 2008, severe uncontrolled diabetes, hypertension, hyperlipidemia who presented to the emergency on with complaints of chest pain, shortness of breath, diaphoresis, nausea and visual changes. The patient says that he was "out for a ride" yesterday and decided to stop by [place] at which time he started to develop some chest tightness that was substernal with radiation throughout both sides of his chest. He said that this is associated with some shortness of breath, and some nausea and vomiting. He has had significant cardiac history in the past, and he says that this is not similar to those events. Although he does have nitroglycerin at home, he did not take any nitroglycerin at this time but instead came to the hospital. He says that it lasted for a total of approximately 4 hours prior to resolution. There are no aggravating or alleviating factors. Additionally, the patient does say that he has had approximately one year history of nausea vomiting and diarrhea which has been unexplained. He says that he seen several doctors about this in the past, however no one has been able to tell me exactly what is been going on. He said that this occurred from approximately September 2016 to June 2017 and then generally resolved, however it started again approximately one week ago. Nothing seemed to help or make this worse. He has started vomiting again according to the patient. In the ED, the patient was found to be hypotensive on arrival with an EKG that showed normal sinus rhythm and no significant ST-T wave changes, however there is presence of a Q wave in lead 3 and aVF. The patient also had a positive troponin initially at 0.3 which then went up to 0.6. His chest pain had resolved, but he was found have an NÉSTOR with a serum creatinine of 1.8. Interventional cardiology recommended that the patient be placed on vasopressors as needed, and so the patient did receive a right femoral central line and was transferred to the ICU on Levophed for pressure support. Past Med Surg Social Fam HX - Past Medical History Medical history: arthritis, cancer, coronary artery disease, CVA, diabetes, hyperlipidemia, hypertension, renal disease Psychiatric history: anxiety, depression, panic disorder - Past Surgical History Surgical History: angioplasty/stent, cancer surgery, cholecystectomy, coronary bypass (CABG), knee replacement - Social History Smoking Status: Former smoker Smokeless Tobacco Status: No Alcohol use: occasionally Drug use: none All Systems: The remainder of the systems were reviewed and are negative Review of Systems: Constitutional: Denies fevers, chills. Admits to weight loss, generalized fatigue ove the past year Head/Neck: Denies JAIN, neck stiffness EENT: Denies rhinorrhea, congestion, sore throat. Admits to vision changes/ blurriness which resolved after the event CVS: Admits to chest pains/pressure which resolved. He did have shortness of breath, which is worsened from his baseline SOB. Pulm: Denies SOB, cough, sputum, hemoptysis, wheezing GI: Admits to nausea and vomiting and diarrhea over the past year which recently began again. Denies hematemesis or hematochezia : Denies dysuria, increased frequency, urgency, hematuria Heme: Denies ease of bleeding or bruising MSK: Denies joint pain, limited ROM Skin: Denies rashes, ulcers, color changes Neuro: Denies JAIN, focal deficits, ataxia. Admits to paresthesias associated with diabetic neuropathy Physical Examination Vital Signs: Vital Signs, Last 4 Hours Pulse Resp BP Pulse Ox 10/30/17 07:00 74 18 103/72 94 10/30/17 06:00 91 16 130/75 95 10/30/17 05:00 97 12 96/59 94 Gen: Vitals noted. No acute distress. AAOx3 HEENT: PERRL/EOMI, oropharynx clear, Normocephalic, atraumatic Neck: Supple. No adenopathy. Cardiac: RRR, no murmur, +S1/S2 Pulmonary: left basilar rales with resolution after deep breathing and coughs Abdomen: soft, nontender, BS noted, no guarding Back: Nontender throughout. MSK: ROM intact, no joint swelling noted Extremities: no BLE edema, nontender calf, no cyanosis or clubbing Neuro: moves all extremities, no focal deficits. 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 Psych: Appropriate mood and behavior Results - Laboratory Findings CBC and BMP: 10/30/17 05:21 10/30/17 05:21 PT/INR, D-dimer PT 10.6 Seconds (9.4-12.1) 10/29/17 15:53 Abnormal lab findings: Abnormal lab results WBC 11.5 K/mcL (4.3-11.1) H 10/30/17 05:21 RBC 3.75 M/mcL (4.19-5.50) L 10/30/17 05:21 Hgb 12.6 g/dL (12.9-16.9) L 10/30/17 05:21 Hct 34.9 % (37.5-50.1) L 10/30/17 05:21 MCH 33.6 pg (28.0-33.3) H 10/30/17 05:21 MCHC 36.1 g/dL (31.6-35.5) H 10/30/17 05:21 MPV 8.9 fL (9.4-12.4) L 10/30/17 05:21 Neutrophils # 9.0 K/mcL (1.6-8.9) H 10/30/17 05:21 Reactive Lymphocytes Present (Not Present) A 10/30/17 05:21 Toxic Granulation Present (Not Present) A 10/30/17 05:21 APTT 36.1 Seconds (26.0-36.0) H 10/30/17 05:21 Glucose 242 mg/dL (70-105) H 10/30/17 05:21 POC Glucose 106 mg/dL (70-99) H 10/29/17 21:21 Hemoglobin A1c 10.1 % (-5.6) H 10/30/17 05:21 Troponin I 0.29 ng/mL (< 0.04) H* 10/30/17 05:21 - Clinical Findings Intake & Output: Intake & Output 10/29/17 10/30/17 10/30/17 23:59 07:59 15:59 Intake Total 50 / 50 1467 / 1467 Output Total 550 / 550 2975 / 2975 Balance -500 / -500 -1508 / -1508 Weight 96.2 kg
--- NOTE | 2017-10-30 08:13 | Cardiology Consult Note ---
<Allison Hahn - Last Filed: 10/30/17 10:40> Date of Encounter: 10/30/17 Time of Encounter: 10:30 Assessment and Plan (1) NSTEMI (non-ST elevated myocardial infarction) Current Visit: Yes Status: Acute Troponin decreasing since admission. Due to patient's history of CAD and HPI of this incident we will plan to cath the patient. Patient NPO at this time. Chest pain free at this time. On heparin. (2) CAD (coronary artery disease) Current Visit: Yes Status: Chronic Continue patient's plavix and aspirin. Consider addition of beta joe to patiet's medication regimen. Cath today. Qualifiers: Coronary Disease-Associated Artery/Lesion type: unspecified vessel or lesion type [place] vs. transplanted heart: unspecified whether [place] or transplanted heart Associated angina: with unspecified angina Qualified Code (s): I25.119 - Atherosclerotic heart disease of [place] coronary artery with unspecified angina pectoris Discussion w patient/family: The assessment and plan as outlined above was discussed with the patient and/or family members who expressed understanding and agreement. All questions were answered. Thank you for involving us in the care of your patient. Please call with any questions. History of Present Illness Consult date: 10/30/17 Consult reason: NSTEMI Chief complaint: Chest Pain/Diaphoresis History of present illness: Mr. Marquis is a 62 year old male with significant PMHx of diabetes, CAD, and HTN who presented to the ED with chief complaint of diaphoresis and chest pressure. Patient was hypotensive on arrival and found to have NÉSTOR. Patient was resuscitated with fluids and pressors after initial evaluation. Patient [place] when he started having substernal chest pressure with diaphoresis and blurred vision. At first he thought his sugar was low but he states this is similar to his previous [place]. He had a 4 vessel CABG in 2007 and stent in the LAD approximately 6 months after that. Patient was a loss to follow up after this. Patient continues to take his plavix and aspirin. Patient does state he had a cath at an outside facility approximately 3 years ago but there was no intervention. Patient is chest pain free at this time. Troponin was found to be elevated upon arrival and has lowered since admission. Patient has suffered from chronic abdominal pain for approximately 1 year which he follow with an outside GI physician for. Past Med Surg Social Fam HX - Past Medical History Attestation: Yes The following information was validated with the patient. Medical history: arthritis, cancer, coronary artery disease, CVA, diabetes, hyperlipidemia, hypertension, renal disease Psychiatric history: anxiety, depression, panic disorder - Past Surgical History Surgical History: angioplasty/stent, cancer surgery, cholecystectomy, coronary bypass (CABG), knee replacement - Social History Smoking Status: Former smoker Smokeless Tobacco Status: No Alcohol use: occasionally Drug use: none Medications and Allergies Aspirin 325 mg PO DAILY 12/28/16 [History] Buspirone HCl [Buspar] 30 mg PO DAILY 12/28/16 [History] Clopidogrel [Plavix] 75 mg PO DAILY 12/28/16 [History] Diltiazem CD (24hr) [Cardizem CD] 120 mg PO DAILY 12/28/16 [History] Fenofibrate Nanocrystallized [Triglide] 160 mg PO DAILY 12/28/16 [History] Insulin Glargine [Lantus] 60 unit SQ HS 12/28/16 [History] Insulin LISPRO [Humalog] 0 - 20 unit SQ TID PRN 12/28/16 [History] Isosorbide MONOnitrate (24 HR) [Imdur] 180 mg PO DAILY 12/28/16 [History] Lansoprazole [Prevacid] 30 mg PO DAILY 12/28/16 [History] Lisinopril/Hydrochlorothiazide [Zestoretic 20-12.5 mg Tablet] 2 each PO DAILY [History] Melatonin 10 mg PO HS PRN 12/28/16 [History] Nitroglycerin [Nitrostat] 0.4 mg SL Q5M PRN 12/28/16 [History] Ranolazine [Ranexa] 1,000 mg PO BID 12/28/16 [History] Terazosin HCl 2 mg PO DAILY 12/28/16 [History] Trazodone HCl 50 mg PO HS 12/28/16 [History] Venlafaxine XR (24 HR) [Effexor XR] 150 mg PO DAILY 12/28/16 [History] Atorvastatin Calcium [Lipitor] 80 mg PO HS 10/30/17 [History] BuPROPion XL (24 HR) [Wellbutrin XL] 300 mg PO DAILY 10/30/17 [History] Gabapentin [Neurontin] 800 mg PO TID 10/30/17 [History] 3 Allergy/AdvReac Type Severity Reaction Status Date / Time acetaminophen [From Percocet] Allergy Hives Verified 12/28/16 08:52 Oxycodone [From Percocet] Allergy Hives Verified 12/28/16 08:52 Hydromorphone [From Dilaudid] AdvReac Chest Pain Verified 12/28/16 08:52 All Systems Review: The remainder of the systems were reviewed and are negative - Constitutional Constitutional: no fever(s) - EENT Eyes: blurred vision - Cardiovascular Cardiovascular: as per HPI - Respiratory Respiratory: no cough, no dyspnea - Gastrointestinal Gastrointestinal: abdominal pain, nausea - Musculoskeletal Musculoskeletal: no muscle weakness, no myalgias - Integumentary Integumentary: no rash - Neurological Neurological: no abnormal speech, no memory loss Physical Examination Vital Signs, Last 4 Hours Pulse Resp BP Pulse Ox 10/30/17 07:00 74 18 103/72 94 10/30/17 06:00 91 16 130/75 95 10/30/17 05:00 97 12 96/59 94 General: Conversant, No Apparent Distress HEENT: Atraumatic, Normocephaly, Mucus Membranes Moist Neck: No JVD Cardiac: Reg Rate and Rhythm, Normal S1 and S2, No Murmur Lungs: Normal Breath Sounds, No Wheeze, Rales, Rhonchi Neuro: Alert and responsive, No focal deficits noted Abdomen: Soft, Non-Tender Skin: No rashes noted on visualized skin Musculoskeletal: No Chest Wall Tenderness Extremities: No Clubbing, No Cyanosis, No Edema, Normal Pulses Results 10/30/17 05:21 10/30/17 05:21 Lab Results 10/30/17 10/30/17 10/30/17 05:21 05:21 05:21 WBC 11.5 H Hgb 12.6 L Hct 34.9 L Plt Count 255 APTT Sodium 136 Potassium 3.8 Chloride 104 Carbon Dioxide 24 BUN 20 Creatinine 1.16 Glucose 242 H Calcium 8.7 Troponin I B-Natriuretic Peptide 45 10/30/17 10/30/17 05:21 05:21 WBC Hgb Hct Plt Count APTT 36.1 H Sodium Potassium Chloride Carbon Dioxide BUN Creatinine Glucose Calcium Troponin I 0.29 H* B-Natriuretic Peptide Consult Discharge Plan - Plan Referrals: Andre Aquino MD [Primary Care Provider] - <Puma Yates - Last Filed: 10/30/17 17:23> Date of Encounter: 10/30/17 - Attending Attestation I examined this patient and my medical decision-making was reviewed with the Resident Physician. I agree with the documented findings, disposition and treatment plan as described except to the extent set forth below. 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 He left the casino and drove to [facility]. He reports no further chest pain since admit. He has extensive cardiac hx, previous CABG 2007, left heart cath in [place] 2014. At last C, no intervention was performed, pt informed the arteries with the blockages were too small to fix. He did not follow up with cardiology. He reports presenting chest pain symptoms the same symptoms he had before bypass, which resolved for several years after bypass. PMHx: reviewed PE: pt seen and examined, agree with findings as documented. IMP/Plan: 1. Chest pain concerning for unstable angina, discussed options, recommendations for LHC/poss, attempting to obtain previous cath reports, however would proceed with LHC in light of elevating cardiac markers. Risks and benefits discussed, pt agrees to proceed later today. 2. Elevated troponin, .25, consistent with myocardial necrosis, will reevalute with LHC. Assessment and Plan Discussion w patient/family: The assessment and plan as outlined above was discussed with the patient and/or family members who expressed understanding and agreement. All questions were answered. Thank you for involving us in the care of your patient. Please call with any questions. History of Present Illness History of present illness: Mr. Marquis is a 62 year old male All Systems Review: The remainder of the systems were reviewed and are negative Physical Examination Vital Signs, Last 4 Hours Pulse Resp BP Pulse Ox 10/30/17 17:00 89 18 128/74 95 10/30/17 16:00 79 20 125/68 96 10/30/17 15:00 82 16 115/93 94 10/30/17 14:00 80 119/85 Results 10/30/17 05:21 10/30/17 05:21 Lab Results 10/30/17 10/30/17 10/30/17 05:21 05:21 05:21 WBC 11.5 H Hgb 12.6 L Hct 34.9 L Plt Count 255 APTT Sodium 136 Potassium 3.8 Chloride 104 Carbon Dioxide 24 BUN 20 Creatinine 1.16 Glucose 242 H Calcium 8.7 Troponin I B-Natriuretic Peptide 45 TSH 0.227 L 10/30/17 10/30/17 10/30/17 05:21 05:21 11:35 WBC Hgb Hct Plt Count APTT 36.1 H 49.6 H Sodium Potassium Chloride Carbon Dioxide BUN Creatinine Glucose Calcium Troponin I 0.29 H* B-Natriuretic Peptide TSH
[2017-10-30] MEDS: Ondansetron 4 MG/2 ML VIAL IVP PRN ×2 (09:14→18:17)
[2017-10-30 09:20] LABS: Thyroid Stimulating Hormone 0.227 mcIU/mL (0.340-5.600)
[2017-10-30] MEDS ORDERED: Dextrose Gel 15 GM/37.5 ML TUBE PO PRN (10:54)
[2017-10-30] MEDS ORDERED: MORPHINE SUL Oral CONC 10 MG/0.5 ML ORAL.SYG SL PRN (10:55)
[2017-10-30] MEDS: Aspirin 325 MG TABLET PO SCH (11:31)
[2017-10-30] MEDS: Gabapentin 400 MG CAPSULE PO SCH ×3 (12:03→21:21)
[2017-10-30] MEDS: Insulin LISPRO 300 UNITS/3 ML VIAL SQ SCH ×3 (12:05→21:22)
[2017-10-30] MEDS: MORPHINE SUL Oral CONC 10 MG/0.5 ML ORAL.SYG SL PRN ×2 (14:34→21:22)
[2017-10-30] MEDS: Heparin 25,000 UNIT/500 ML D5W 25,000 UNIT/500 ML BAG IVC SCH (16:14)
[2017-10-30] MEDS: Norepinephrine 4 MG in D5% in Water 250 ML IVC SCH (16:22)
[2017-10-31 01:30] LABS: Basophils % 0.3 %; Eosinophils # 0.2 K/mcL (0.0-0.6); Eosinophils % 1.9 %; Hematocrit 35.7 % (37.5-50.1); Hemoglobin 12.8 g/dL (12.9-16.9); Immature Granulocytes % 0.4 % (0-4); Lymphocytes # 2.8 K/mcL (0.6-4.6); Lymphocytes % 27.3 %; Mean Corpuscular HGB Conc 35.9 g/dL (31.6-35.5); Mean Corpuscular Hemoglobin 33.9 pg (28.0-33.3); Mean Corpuscular Volume 94.4 fL (83.0-100.0); Mean Platelet Volume 8.8 fL (9.4-12.4); Monocytes # 0.6 K/mcL (0.0-1.3); Monocytes % 5.9 %; Neutrophils # 6.6 K/mcL (1.6-8.9); Platelet Count 268 K/mcL (140-400); Red Blood Count 3.78 M/mcL (4.19-5.50); Segmented Neutrophils % 64.2 %
[2017-10-31 01:47] LABS: BUN/Creatinine Ratio 13 (6-26); Blood Urea Nitrogen 12 mg/dL (8-23); Calcium 8.8 mg/dL (8.6-10.3); Carbon Dioxide 29 mEq/L (23-29); Chloride 101 mEq/L (98-107); Glucose 93 mg/dL (70-105); Osmolality,Calculated 283 (280-300); Potassium 3.7 mEq/L (3.5-5.1); Sodium 137 mEq/L (136-145); eGFR For African Americans > 60 (> 60); eGFR For Non-African Americans > 60 (> 60)
[2017-10-31] MEDS: Insulin LISPRO 300 UNITS/3 ML VIAL SQ SCH ×5 (03:55→17:37)
[2017-10-31] MEDS: Heparin 25,000 UNIT/500 ML D5W 25,000 UNIT/500 ML BAG IVC SCH (06:24)
--- NOTE | 2017-10-31 08:22 | Internal Med Progress Note ---
<Andre Kessler - Last Filed: 10/31/17 08:06> Date of Encounter: 10/31/17 Time of Encounter: 08:06 - Assessment and plan (1) NSTEMI (non-ST elevated myocardial infarction) Current Visit: Yes Status: Acute Assessment and plan: NSTEMI in patient with 5 vessel bypass and previous stent placement Serial Troponins downtrending since admission. Anticipate LHC today. Patient NPO at this time. Chest pain free at this time. On heparin drip Cardiology following (2) CAD (coronary artery disease) Current Visit: Yes Status: Chronic Assessment and plan: Reported s/p CABG 2007 s/p 1 vessel stent 2008 Continue patient's plavix and aspirin. Consider addition of beta joe to patiet's medication regimen. Cath today Qualifiers: Coronary Disease-Associated Artery/Lesion type: unspecified vessel or lesion type [place] vs. transplanted heart: unspecified whether [place] or transplanted heart Associated angina: with unspecified angina Qualified Code (s): I25.119 - Atherosclerotic heart disease of [place] coronary artery with unspecified angina pectoris (3) Hypertension Current Visit: Yes Status: Chronic Assessment and plan: Consider addition of beta joe to patiet's medication regimen. Cardiology following Qualifiers: Hypertension type: unspecified Qualified Code(s): I10 - Essential (primary ) hypertension (4) NÉSTOR (acute kidney injury) Current Visit: Yes Status: Resolved Assessment and plan: Acute kidney injury on arrival, resolved Kidney function has since improved with addition of fluids The patient will be receiving significant IV dye load during [facility] We will continue to hydrate as needed, continue monitoring (5) Diabetes Current Visit: Yes Status: Chronic Assessment and plan: Poorly controlled diabetes with peripheral neuropathy Patient has elevated glucose, A1c is 10.1 He will require adjustment or modification of his insulin home regimen At this time we will use sliding scale insulin for blood glucose management Qualifiers: Diabetes mellitus type: type 2 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 use status Diabetes mellitus complication status : with unspecified complications Qualified Code(s): E11.8 - Type 2 diabetes mellitus with unspecified complications (6) DVT prophylaxis Current Visit: Yes Status: Acute Assessment and plan: Heparin drip (7) Chronic respiratory failure with hypoxia Current Visit: Yes Status: Acute Assessment and plan: Patient wears 2L supplemental O2 at night at baseline - Time Spent With Patient Total time spent is greater than 50% in coordination of care (as documented) at patient's floor/unit and/or counseling patient: - Subjective Interval history: Patient seen and examined resting comfortably in bed. Patient is NPO awaiting [facility] today. He denies any current CP or new c/o. Cardiology following. - Constitutional Vitals: Temp Pulse Resp BP Pulse Ox 98 F 82 18 146/87 93 10/31/17 07:20 10/31/17 07:20 10/31/17 07:20 10/31/17 07:20 10/31/17 07:20 General appearance: Present: cooperative, A&O X 3, pleasant, no acute distress, answers questions appropriately - Head Head exam: Present: atraumatic, normocephalic - Eye Eye exam: Present: PERRL, conjuntiva pink, sclera anicteric Pupils: Present: PERRL - ENT ENT exam: Present: mucous membranes moist, normal oropharynx - Neck Neck exam general surgery: Present: supple, trachea midline. Absent: lymphadenopathy - Respiratory Respiratory exam: Present: CTAB. Absent: accessory muscle use, decreased breath sounds, rales, rhonchi, wheezes - Cardiovascular Cardiovascular exam: Present: RRR, +S1, +S2. Absent: diastolic murmur, gallop, irregular rhythm, rubs, systolic murmur - GI/Abdominal GI/Abdominal exam: Present: normal bowel sounds, soft, no peritoneal signs. Absent: distended, guarding, tenderness - Extremities Exam Extremities exam: Present: normal capillary refill, normal inspection, warm, radial pulses palpable and symmetrical. Absent: calf tenderness, cyanotic, pedal edema - Back Exam Back exam: Present: normal inspection. Absent: tenderness - Neurological Exam Neurological exam: Present: CN II-XII intact, oriented X3, no focal deficits. Absent: pronater drift, facial droop, speech deficit - Psychiatric Psychiatric exam: Present: normal affect, normal mood - Skin Skin exam: Present: dry, intact, warm Internal Medicine: Result - Labs CBC & Chem 7: 10/31/17 01:17 10/31/17 01:17 Labs: Short CBC 10/31/17 Range/Units 01:17 WBC 10.3 (4.3-11.1) K/mcL Hgb 12.8 L (12.9-16.9) g/dL Hct 35.7 L (37.5-50.1) % Plt Count 268 (140-400) K/mcL Neutrophils # 6.6 (1.6-8.9) K/mcL BMP 10/30/17 10/31/17 05:21 01:17 Sodium 136 137 Potassium 3.8 3.7 Chloride 104 101 Carbon Dioxide 24 29 BUN 20 12 Creatinine 1.16 0.89 Glucose 242 H 93 Calcium 8.7 8.8 - ABG Interpretation ABG results: PT/INR, D-dimer PT 10.6 Seconds (9.4-12.1) 10/29/17 15:53 - Pulse Oximetry Interpretation Digit-Finger Pulse Oximetry Readin (on RA) - Impressions Impressions Echocardiogram 10/30/17 20:07 Impressions: LVEF 60%. Moderate left ventricular diastolic dysfunction. Normal right ventricular structure and function. Mild mitral regurgitation. Mild-moderate tricuspid regurgitation. No pulmonary hypertension by TR gradient, 29 mmHg. IVC is not well visualized. Left Ventricular Wall Motion: Rest Echo Findings The mid inferior lateral wall was not visualized. All other wall segments showed normal motion. Findings: Study Quality * Technically adequate exam. ECG Findings * Normal sinus rhythm, PACs. Left Ventricle * LVEF 60%. * Normal LV chamber size, wall thickness and function. * Moderate left ventricular diastolic dysfunction. Right Ventricle * Normal right ventricular structure and function. Left Atrium * Moderately dilated left atrium. Right Atrium * Normal right atrial size. Mitral Valve * Normal mitral valve structure. * No mitral stenosis. * Mild mitral regurgitation. Aortic Valve * No aortic regurgitation. * Aortic valve not well visualized. * No aortic stenosis. Tricuspid Valve * Tricuspid valve not well visualized. * Mild-moderate tricuspid regurgitation. Pulmonic Valve * Pulmonic valve is not well visualized. * No pulmonic regurgitation. * No pulmonic stenosis. Pulmonary Artery * Pulmonary artery not well visualized. Aorta * Normally sized aortic root. Pericardium * There is no pericardial effusion present. Interatrial Septum * Interatrial septum not well evaluated. IVC * The IVC is not well evaluated. 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 transplanted heart: unspecified whether [place] or transplanted heart Associated angina: with unspecified angina Qualified Code (s): I25.119 - Atherosclerotic heart disease of [place] coronary artery with unspecified angina pectoris (4) Hypertension Current Visit: Yes Status: Chronic Qualifiers: Hypertension type: unspecified Qualified Code(s): I10 - Essential (primary ) hypertension (5) NÉSTOR (acute kidney injury) Current Visit: Yes Status: Resolved (6) DVT prophylaxis Current Visit: Yes Status: Acute (7) Chronic respiratory failure with hypoxia Current Visit: Yes Status: Acute - Time Spent With Patient Total time spent is greater than 50% in coordination of care (as documented) at patient's floor/unit and/or counseling patient: - Constitutional Vitals: Temp Pulse Resp BP Pulse Ox 98 F 82 18 146/87 93 10/31/17 07:20 10/31/17 07:20 10/31/17 07:20 10/31/17 07:20 10/31/17 07:20 Internal Medicine: Result - Labs CBC & Chem 7: 10/31/17 01:17 10/31/17 01:17 Labs: Short CBC 10/31/17 Range/Units 01:17 WBC 10.3 (4.3-11.1) K/mcL Hgb 12.8 L (12.9-16.9) g/dL Hct 35.7 L (37.5-50.1) % Plt Count 268 (140-400) K/mcL Neutrophils # 6.6 (1.6-8.9) K/mcL BMP 10/31/17 01:17 Sodium 137 Potassium 3.7 Chloride 101 Carbon Dioxide 29 BUN 12 Creatinine 0.89 Glucose 93 Calcium 8.8 - ABG Interpretation ABG results: PT/INR, D-dimer PT 10.6 Seconds (9.4-12.1) 10/29/17 15:53 - Impressions Impressions Echocardiogram 10/30/17 20:07 Impressions: LVEF 60%. Moderate left ventricular diastolic dysfunction. Normal right ventricular structure and function. Mild mitral regurgitation. Mild-moderate tricuspid regurgitation. No pulmonary hypertension by TR gradient, 29 mmHg. IVC is not well visualized. Left Ventricular Wall Motion: Rest Echo Findings The mid inferior lateral wall was not visualized. All other wall segments showed normal motion. Findings: Study Quality * Technically adequate exam. ECG Findings * Normal sinus rhythm, PACs. Left Ventricle * LVEF 60%. * Normal LV chamber size, wall thickness and function. * Moderate left ventricular diastolic dysfunction. Right Ventricle * Normal right ventricular structure and function. Left Atrium * Moderately dilated left atrium. Right Atrium * Normal right atrial size. Mitral Valve * Normal mitral valve structure. * No mitral stenosis. * Mild mitral regurgitation. Aortic Valve * No aortic regurgitation. * Aortic valve not well visualized. * No aortic stenosis. Tricuspid Valve * Tricuspid valve not well visualized. * Mild-moderate tricuspid regurgitation. Pulmonic Valve * Pulmonic valve is not well visualized. * No pulmonic regurgitation. * No pulmonic stenosis. Pulmonary Artery * Pulmonary artery not well visualized. Aorta * Normally sized aortic root. Pericardium * There is no pericardial effusion present. Interatrial Septum * Interatrial septum not well evaluated. IVC * The IVC is not well evaluated. - Attending Attestation NSTEMI heparin drip [facility] today I examined this patient and my medical decision-making was reviewed with the Resident Physician. I agree with the documented findings, disposition and treatment plan as described except to the extent set forth below.
[2017-10-31] MEDS: Gabapentin 400 MG CAPSULE PO SCH ×3 (08:37→20:01)
[2017-10-31] MEDS: Aspirin 325 MG TABLET PO SCH (08:38)
[2017-10-31] MEDS ORDERED: Pantoprazole 40 MG VIAL IVP ONE (09:11)
--- NOTE | 2017-10-31 10:20 | Event Note ---
Date of Encounter: 10/31/17 Time of Encounter: 10:13 - Cardiology Event Note Plan for LHC today. Reports last LHC was completed here. Last report from 2010. LHC reviewed-Severe three vessel CAD s/p CABG. TRIMBLE-LAD was patent but atretic, Sequential SVG -PDA -PL branches was patent. Sequential SVG-OM1-OM2 was occluded. Pre-existing LAD stent was patent. LVEF 65%. no intervention at that time. Patient states he had LHC at [facility] at one point with no-intervention. On my exam today he continues to have midsternal chest discomfort that increases with activity. Scr returned to normal.
[2017-10-31] MEDS ORDERED: *HR* Heparin 10,000 UNIT/10 ML VIAL ONE (10:22)
[2017-10-31] MEDS ORDERED: ISOVUE-370 200 ML INFUS..BTL IV ONE (10:22)
[2017-10-31] MEDS ORDERED: Heparin 1,000 UNITS/500 mL 500 ML ONE (10:22)
[2017-10-31] MEDS ORDERED: 0.9 % Sodium Chloride 1,000 ML ONE (10:22)
[2017-10-31] MEDS ORDERED: *HR* Midazolam HCl 2 MG/2 ML VIAL ONE (11:18)
[2017-10-31] MEDS ORDERED: Nitroglycerin 1,000 MCG/10 ML VIAL IV ONE (11:19)
[2017-10-31] MEDS ORDERED: *HR* FentaNYL (PF) 100 MCG/2 ML VIAL ONE (11:19)
--- NOTE | 2017-10-31 11:24 | Pre-Sedation Evaluation ---
Pre-sedation evaluation - Pre-sedation checklist Date of procedure: 10/31/17 Procedure: Left Heart Cath Recent Vitals: Last Vital Signs Temp 98 F 10/31/17 07:20 Pulse 82 10/31/17 07:20 Resp 18 10/31/17 07:20 BP 146/87 10/31/17 07:20 Pulse Ox 93 10/31/17 07:20 H&P (including ROS) documented in medical record: Yes Previous reaction to sedatives/anesthetics: No Dietary Status: NPO after Midnight Dentition: No loose teeth or bridges, full dentition ASA Classification *see protocol: CLASS II-Mild systemic disease
--- NOTE | 2017-10-31 12:12 | Invasive Diagnostic Lab Proc ---
Name: Darin Marquis Date of Study: 10/31/2017 Date: 1955 Ht: 70.9in Medical Record#: [id number] Age: 62 Wt: 211.64lb Gender: Male BSA: 2.16 Order #: [id number] BMI: 29.63 Physicians Procedure Physician: Jie Cabrla MD Referring MD: Andre Aquino MD Referring MD: Staff Name Position Time In Dutch Fletcher RT (R) Scrub 11:05 AM Janina Fletcher RT (R) Monitor 11:05 AM Jordan De La O RN Monitor 11:05 AM Marcella Lizarraga RN Manager Internal 11:05 AM Indications Indication Non-Stemi Procedures Performed Procedure L HRT ART/GRFT ANGIO Pre-Procedure Checklist Informed consent is complete signed and on chart. H&P is on chart. ID band is on and ID verified with patient. Patient NPO for procedure The procedure was described for the patient and questions were answered. ECG is on chart. Plan of Care Patient will tolerate the procedure without complications. Adequate level of comfort will be maintained. Hemodynamics will remain stable Patient will recover from procedure without complications. Respiratory function will be maintained. Cardiac rhythm will remain stable. Patient temperature will be maintained. Patient and/or family have verbalized understanding of the procedure. Patient Education Chief Complaint/Reason for Test: Cardiac Cath Developmental Category: Adult (18-64 years) Developmentally Appropriate for Age: Yes Learning Barriers: None Education Needs: Procedure Education Method: Verbal Information Taught: Cardiac Cath Educational Evaluation: Able to repeat information Intravenous Access Time IV Size Location DC'd Fluid/Drip Rate Units RN 11:07 AM 20g 1 1/4" Patent On Arrival Rt Arm 0.9NaCl 25 ml/hr Marcella Lizarraga RN 11:10 AM 18g 1 1/4" Patent On Arrival Lt Arm Marcella Lizarraga RN Allergies Hydromorphone Oxycodone acetaminophen Vital Signs Time BP (mmHg) HR (bpm) O2 Sat. RR (bpm) LOC 11:06 AM / % 5 = Fully awake and oriented or at pre-proc level 11:11 AM / % 5 = Fully awake and oriented or at pre-proc level 11:11 AM / % 4 = Oriented but drowsy 11:26 AM / % 4 = Oriented but drowsy 11:15 AM 195 / 173 90 100 % 11:20 AM 145 / 86 84 98 % 11:25 AM 137 / 75 86 96 % 11:30 AM 146 / 74 87 97 % 11:35 AM 136 / 67 89 96 % 11:40 AM 137 / 72 97 97 % 11:45 AM 132 / 79 72 % Procedural Medications Time Medication Dose Units Method Given By 11:11 AM Oxygen 2 L/min nasal cannula Marcella Lizarraga RN 11:20 AM Versed 1 mg Intravenous ElhamMarcella rodriguez RN 11:20 AM Fentanyl 50 mcg Intravenous [place] rodriguez RN 11:28 AM Versed 1 mg Intravenous ElhamMarcella RN 11:28 AM Fentanyl 50 mcg Intravenous ElhamMarcella rodriguez RN 11:30 AM Lidocaine 2% 10 ml Subcutaneous Jie Cabral MD ASA Classification: CLASS II- Mild systemic disease (i.e. well-controlled diabetes, hypertension, asthma, cigarette smoking) Alysia Score Preprocedure Postprocedure Activity 2- Moves 4 extremities sustained head lift Activity 2- Moves 4 extremities sustained head lift Circulation 2- SBP +/= 20 points of pre-anesthetic level Circulation 2- SBP +/= 20 points of pre-anesthetic level Consciousness 2- Awake and alert oriented x 3 Consciousness 2- Awake and alert oriented x 3 O2 Saturation 2- Able to maintain O2 satruation of 92% on room air O2 Saturation 2- Able to maintain O2 satruation of 92% on room air Respiratory 2- Able to deep breathe and cough well Respiratory 2- Able to deep breathe and cough well Total Score 10 Total Score 10 Contrast Agent: Isovue Diagnostic Contrast: 56 ml Total Contrast: 56 ml Fluoro Dose: 487 mGy Procedure Log Time Note Enter By 11:05 AM 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 11:05 [place] 11:05 AM Dutch Fletcher RT (R) Position: Scrub Time in: 11:05 [place] 11:05 AM Janina Fletcher RT (R) Position: Monitor Time in: 11:05 [place] 11:05 AM Jordan De La O RN Position: Monitor Time in: 11:05 [place] 11:05 AM Marcella Lizarraga RN Position: Manager Internal Time in: 11:05 [place] 11:06 AM Time: 11:06 Patient comfortable and pain free: Yes [place] 11:06 AM Time: 11:06LOC: 5 = Fully awake and oriented or at pre-proc level [place] 11:10 AM Physician arrived 11:10 [place] 11:10 AM Meet and ibis completed [place] 11:10 AM CathStat 11:10 AM Sign in performed according to hospital policy. [place] 11:10 AM Procedure start 11: [place] 11: AM Time: 11:11 Patient comfortable and pain free: Yes twilson : AM Time: LOC: 5 = Fully awake and oriented or at pre-proc level twilson : AM Time: 11: Oxygen on at 2 L/min per nasal cannula by Marcella Lizarraga RN [facility] 11:12 AM Case Delayed no twilson 11:12 AM Clinical Presentation: Non-STEMI twilson 11:14 AM Vitals capture started with the following parameters, Patient=Adult, Interval=5 min, Initial Ysyjnydx=424 mmHg, Deflation Rate=5 mmHg, Cuff placed on Right Arm 11:15 AM HR=90 bpm, TNFG=543/173 mmhg, TnG5=546.0 % 11:18 AM Hair removed from procedure site in procedure lab using clippers. Bilateral groin prepped with Chloraprep by Janina Fletcher), then patient was draped. Skin intact. twilson : AM Time: 11: Versed 1 mg Intravenous Given by Marcella Lizarraga RN [facility] AM Time: :20 Fentanyl 50 mcg Intravenous Given by Marcella Lizarraga RN [facility] 11: AM HR=84 bpm, NLZN=039/86 mmhg, SpO2=98.0 % 11: AM Pressure channel 1 zeroed. 11:21 AM Recorded ECG: HR=76 Condition=Condition 1 11: AM Pressure channel 1 zero failed. 11: AM Pressure channel 1 zeroed. 11:25 AM HR=86 bpm, CDBB=557/75 mmhg, SpO2=96.0 % 11: AM ASA Class CLASS II- Mild systemic disease (i.e. well-controlled diabetes, hypertension, asthma, cigarette smoking) twilson : AM Time: LOC: 4 = Oriented but drowsy twilson : AM Time: 11:11 Patient comfortable and pain free: Yes twilson AM Time: : Versed 1 mg Intravenous Given by Marcella Lizarraga RN [facility] AM Time: 11:28 Fentanyl 50 mcg Intravenous Given by Marcella Lizarraga RN twilson 11:29 AM Time out performed according to hospital policy twilson 11:30 AM HR=87 bpm, XBTZ=188/74 mmhg, SpO2=97.0 % 11:30 AM Time: 11:30 10 ml Lidocaine 2% to right groin Subcutaneous Given by Jie Cabral MD twilson 11:31 AM Micro-Introducer Kit utilized for sheath placement twilson 11:32 AM 3ml contrast hand injection to right groin by Dr. Cabral. twilson 11:32 AM Access obtained by percutaneous puncture. 6Fr 10cm Terumo [place] sheath placed in right Femoral artery. [id number] twilson 11:33 AM 5Fr FR 4 catheter inserted over the wire DN twilson 11:33 AM Wire removed twilson 11:33 AM Patient charges- Angio tray pack, Navilyst 3mm J, Pulse Oximetry and ACIST tubing and transducer twilson 11:34 AM RCA angiography performed in multiple views. twilson 11:34 AM Recorded Pressure: Ao, HR=83, Condition=Condition 1 (Aorta) Ao 124/81/101 11:34 AM Recorded Pressure: Ao, HR=87, Condition=Condition 1 (Aorta) Ao 128/80/102 11:35 AM HR=89 bpm, XPWO=951/67 mmhg, SpO2=96.0 % 11:36 AM Wire reinserted. twilson 11:36 AM Catheter removed twilson 11:36 AM SVG to RPDA and OM1 and OM2 angio performed. Grafts closed. twilson 11:37 AM 5Fr FL 4 catheter inserted over the wire DN twilson 11:37 AM Wire removed twilson 11:37 AM LCA angiography performed in multiple views. twilson 11:37 AM Recorded Pressure: Ao, HR=87, Condition=Condition 1 (Aorta) Ao 117/68/89 11:38 AM Recorded Pressure: Ao, HR=91, Condition=Condition 1 (Aorta) Ao 119/69/90 11:38 AM Wire reinserted. twilson 11:39 AM Catheter removed twilson 11:39 AM 5Fr Pigtail catheter inserted over the wire DN twilson 11:39 AM Catheter selectively placed in left ventricle twilson 11:39 AM Wire removed twilson 11:40 AM Recorded Pressure: LV, HR=87, Condition=Condition 1 (Left Ventricle) LV 137/18/27 11:40 AM HR=97 bpm, IMVY=449/72 mmhg, SpO2=97.0 % 11:40 AM Recorded Pressure: LV, Ao, HR=86, Condition=Condition 1 (Left Ventricle) LV 132/15/21, (Aorta) Ao 142/77/104 11:41 AM Time: 11:26 Patient comfortable and pain free: Yes twilson 11:41 AM Time: 11:26LOC: 4 = Oriented but drowsy twilson 11:42 AM Wire reinserted. twilson 11:42 AM Catheter removed twilson 11:42 AM Procedure completed at 11:42 twilson 11:45 AM HR=72 bpm, IBFM=074/79 mmhg 11:46 AM Did you address МАРИЯ flow and Dominance? Yes twilson 11:46 AM Sign out completed: Radiation Dose 486.95 mGy Fluoro Time: 2.8 Isovue 370 - 200ml contrast 56 ml given by Jie Cabral MD. Complications: NoneCardiac Rehab Consult needed: NoConfirmed administered medications: Yes twilson 11:46 AM Isovue 370 - 200ml,1 Bottle(s) used. twilson 11:47 AM Arterial sheath pulled, Angio-seal closure device used and was Successful S/N. twilson 11:47 AM Estimated Blood Loss: minimal twilson 11:47 AM Post ECG NSR twilson 11:47 AM Post Blood Pressure 132/79 twilson 11:47 AM 11:47 Post Pulses Bilateral DP & PT 1+ twilson 11:47 AM 11:47 Post Pulses Bilateral radial 2+ twilson 11:48 AM Information taught Cardiac Cath and Angioseal twilson 11:48 AM Education needs Procedure, Plan of Care, and Responsibilities of Patient in Care twilson 11:48 AM Learning barriers :None twilson 11:48 AM Education Methods Verbal twilson 11:48 AM Education evaluation Able to repeat information twilson 11:48 AM Site status No bleeding/hematoma - Rt Groin as reported by Dutch Fletcher RT (R) at 11:48 twilson 11:48 AM Opsite applied twilson 11:56 AM Report given to Nolvia JAMESON Pt taken to 2NE Room #19. 11:55 twilson 11:56 AM Delay to floor No twilson 11:56 AM Family placed in consult room. twilson 11:56 AM Patient out of room: 11:56 twilson 11:56 AM Coronary Dominance: right twilson 11:56 AM Lesion found in Proximal RCA. Pre Stenosis: 60 Pre МАРИЯ Flow: twilson 11:56 AM Lesion found in Mid RCA. Pre Stenosis: 100 Pre МАРИЯ Flow: twilson 11:56 AM Right Coronary, Right Posterior Descending Arteries with Right Posterolateral and Acute Marginal branches with 100 % stenosis. If graft is supplying this area, 0 % stenosis twilson 11:56 AM Lesion found in Proximal LAD. Pre Stenosis: 25 Pre МАРИЯ Flow: twilson 11:57 AM Proximal Left Anterior Descending Coronary Artery with 25% stenosis. If graft is supplying this territory, 0 % stenosis. twilson 11:57 AM Lesion found in Mid LAD. Pre Stenosis: 40 Pre МАРИЯ Flow: twilson 11:57 AM Mid/Distal Left Anterior Descending Coronary Artery and diagonal branches with 40% stenosis. If graft is supplying this area, 0 % stenosis twilson 12:04 PM Lesion found in Proximal Circumflex. Pre Stenosis: 100 Pre МАРИЯ Flow: twilson 12:04 PM Circumflex, Obtuse Marginal, Left Posterior Descending, and Left Posterolateral Coronary Arteries with 100 % stenosis. If graft is supplying this area, 0 % stenosis twilson Complications Complication None Hemodynamics Pressures Site Systolic/A Wave Diastolic/V Wave Mean AO 124 81 101 AO 128 80 102 AO 117 68 89 AO 119 69 90 LV 137 18 27 LV 132 15 21 AO 142 77 104 Post Procedure Information Blood Pressure: 132/79 mmHg Rhythm: NSR Post procedural instructions were given Closure Device Time Device Success/Fail 10/31/2017 11:45:00 AM Angio-Seal VIP Successful Site Checks Time Location Status Staff Sheath In? Note 11:48 AM Rt Groin No bleeding/hematoma Dutch Fletcher RT (R) Pulses Time Site Pre-Procedure Post-Procedure Note 10/31/2017 11:08:00 AM Bilateral DP & PT 1+ 10/31/2017 11:08:00 AM Rt Radial 2+ 11:47:00 AM Bilateral DP & PT 1+ 11:47:00 AM Bilateral radial 2+ Updated by Janina Fletcher RT (R) on 10/31/2017 12:04:48 PM electronically signed on 10/31/2017 12:05:21 PM with status of Final
[2017-10-31] MEDS ORDERED: Nitroglycerin 0.4 MG TAB.SUBL SL PRN (13:37)
[2017-10-31] MEDS ORDERED: Insulin LISPRO 300 UNITS/3 ML VIAL SQ SCH ×2 (14:36→21:00)
[2017-10-31] MEDS: BuPROPion XL (24 HR) 150 MG TABLET PO SCH (15:59)
[2017-10-31] MEDS: Isosorbide MONOnitrate (24 HR) 30 MG TAB.ER.24H PO SCH (15:59)
[2017-10-31] MEDS: Diltiazem CD (24hr) 120 MG CAPSULE PO SCH (15:59)
[2017-10-31] MEDS: Venlafaxine XR (24 HR) 150 MG CAP.ER.24H PO SCH (17:37)
[2017-10-31] MEDS: Fenofibrate 54 MG TABLET PO SCH (19:42)
[2017-10-31] MEDS: Ranolazine 500 MG TAB.ER.12H PO SCH (20:01)
[2017-10-31] MEDS ORDERED: Melatonin 3 MG TABLET PO PRN (21:00)
[2017-10-31] MEDS ORDERED: traZODone 50 MG TABLET PO SCH (21:00)
[2017-11-01] MEDS: Heparin 25,000 UNIT/500 ML D5W 25,000 UNIT/500 ML BAG IVC SCH (00:30)
[2017-11-01 00:54] LABS: Hematocrit 33.6 % (37.5-50.1); Hemoglobin 12.1 g/dL (12.9-16.9); Mean Corpuscular Hemoglobin 33.5 pg (28.0-33.3); Mean Corpuscular Volume 93.1 fL (83.0-100.0); Mean Platelet Volume 9.1 fL (9.4-12.4); Platelet Count 263 K/mcL (140-400); Red Blood Count 3.61 M/mcL (4.19-5.50); Red Cell Distribution Width 12.8 % (11.5-14.5)
[2017-11-01 00:59] LABS: BUN/Creatinine Ratio 16 (6-26); Blood Urea Nitrogen 13 mg/dL (8-23); Calcium 9.1 mg/dL (8.6-10.3); Carbon Dioxide 27 mEq/L (23-29); Chloride 103 mEq/L (98-107); Glucose 183 mg/dL (70-105); Osmolality,Calculated 291 (280-300); Potassium 3.7 mEq/L (3.5-5.1); Sodium 138 mEq/L (136-145); eGFR For African Americans > 60 (> 60); eGFR For Non-African Americans > 60 (> 60)
[2017-11-01 01:18] LABS: Activated Partial Thrombo Time 137.7 Seconds (26.0-36.0)
[2017-11-01 01:21] LABS: Heparin anti-factor XA UFH 0.84 IU/mL (0.30-0.70)
[2017-11-01 07:06] VITALS: BP 136/91
[2017-11-01] MEDS: Isosorbide MONOnitrate (24 HR) 30 MG TAB.ER.24H PO SCH (08:51)
[2017-11-01] MEDS: Fenofibrate 54 MG TABLET PO SCH (08:51)
[2017-11-01] MEDS: Diltiazem CD (24hr) 120 MG CAPSULE PO SCH (08:51)
[2017-11-01] MEDS: Venlafaxine XR (24 HR) 150 MG CAP.ER.24H PO SCH (08:51)
[2017-11-01] MEDS: Gabapentin 400 MG CAPSULE PO SCH (08:51)
[2017-11-01] MEDS: Aspirin 325 MG TABLET PO SCH (08:51)
[2017-11-01] MEDS: BuPROPion XL (24 HR) 150 MG TABLET PO SCH (08:52)
[2017-11-01] MEDS: Ranolazine 500 MG TAB.ER.12H PO SCH (08:52)
[2017-11-01] MEDS: Insulin LISPRO 300 UNITS/3 ML VIAL SQ SCH (08:53)
[2017-11-01] MEDS ORDERED: Isosorbide MONOnitrate (24 HR) 60 MG TAB.ER.24H PO SCH (09:00)
--- NOTE | 2017-11-01 09:58 | Discharge Summary ---
<Andre Kessler - Last Filed: 11/01/17 10:42> - NOTES TO OUTPATIENT PROVIDER Notes to Outpatient Provider: Patient has elevated glucose, HGB A1c is 10.1. He will outpatient require adjustment or modification of his home insulin regimen. Repeat BMP in 1 week due to NÉSTOR. Stopped HCTZ and started Metoprolol. Continue ASA, Plavix, Imdur, and Ranexa Date of Encounter: 11/01/17 Time of Encounter: 09:56 - Discharge Diagnosis (1) NSTEMI (non-ST elevated myocardial infarction) Priority: Primary Status: Acute Assessment and Plan: NSTEMI in patient with 5 vessel bypass and previous stent placement Serial Troponins downtrending since admission. LHC revealed 0 of 3 patent bypass grafts and patent stent in mid LAD from prior cath. LAD to RCA collaterals. Chest pain free at this time. Off heparin drip Cardiology recommended optimizing medical management. Follow up with cardiology in 1-2 weeks (2) CAD (coronary artery disease) Priority: Primary Status: Chronic Assessment and Plan: Reported s/p CABG 2007 s/p 1 vessel stent 2008 Continue patient's plavix and aspirin. Continue home medication regimens. Qualifiers: Coronary Disease-Associated Artery/Lesion type: unspecified vessel or lesion type [place] vs. transplanted heart: unspecified whether [place] or transplanted heart Associated angina: with unspecified angina Qualified Code (s): I25.119 - Atherosclerotic heart disease of [place] coronary artery with unspecified angina pectoris (3) Hypertension Priority: Secondary Status: Chronic Assessment and Plan: Stable. Cardiology following Qualifiers: Hypertension type: unspecified Qualified Code(s): I10 - Essential (primary ) hypertension (4) NÉSTOR (acute kidney injury) Priority: Secondary Status: Resolved Assessment and Plan: Acute kidney injury on arrival, resolved Kidney function has since improved with addition of fluids Continue hydration as needed, continue monitoring (5) Diabetes Priority: Secondary Status: Chronic Assessment and Plan: Poorly controlled diabetes with peripheral neuropathy Patient has elevated glucose, A1c is 10.1 He will require adjustment or modification of his insulin home regimen At this time we will use sliding scale insulin for blood glucose management Qualifiers: Diabetes mellitus type: type 2 Diabetes mellitus terminal gauger insulin use: unspecified terminal gauger insulin use status Diabetes mellitus complication status : with unspecified complications Qualified Code(s): E11.8 - Type 2 diabetes mellitus with unspecified complications (6) DVT prophylaxis Priority: Secondary Status: Acute Assessment and Plan: Heparin drip stopped (7) Chronic respiratory failure with hypoxia Priority: Secondary Status: Acute Assessment and Plan: Patient wears 2L supplemental O2 at night at baseline Hospital course: Mr. Marquis is a 62 year old male with a significant PMHx of diabetes, CAD s/ p CABG, and HTN who presented to the ED with chief complaint of diaphoresis and chest pressure. Patient was hypotensive on arrival and found to have NÉSTOR. Patient was resuscitated with fluids and pressors after initial evaluation. [place] having substernal chest pressure with diaphoresis and blurred vision. At first he thought his sugar was low but he states this is similar to his previous ID. He had a 3 vessel CABG in 2007 and stent in the LAD approximately 6 months after that. Patient was a loss to follow up after this. Patient continues to take his Plavix and aspirin. Patient does state he had a cath at an outside facility approximately 3 years ago but there was no intervention. Patient is chest pain free at this time. Troponin was found to be elevated upon arrival and has decreased since admission. Patient had LHC revealing 0 of 3 patent bypass grafts and patent stent in mid LAD from prior cath. LAD to RCA collaterals. Cardiology recommended optimizing medical management. He was monitored for 24hr after LHC and remained chest pain free. Heparin drip was stopped and tolerating PO meds. Stopped HCTZ and started Metoprolol. Continue ASA, Plavix, Imdur, and Ranexa. Patient has elevated glucose, HGB A1c is 10.1. He will outpatient require adjustment or modification of his home insulin regimen. Repeat BMP in 1 week due to NÉSTOR. Follow up with PCP and cardiology in 1-2 weeks Discharge discussed with: patient - Time Spent with Patient Total time spent providing and/or coordinating discharge services: - Discharge Medications Prescriptions: Insulin LISPRO [Humalog] 0 - 20 unit SQ TID PRN #1 cartridge PRN Reason: SLIDING SCALE Isosorbide MONOnitrate (24 HR) [Imdur] 120 mg PO DAILY #30 tab.er.24h Metoprolol [Lopressor] 12.5 mg PO BID #30 tablet Home Medications: Aspirin 325 mg PO DAILY 12/28/16 [History] Buspirone HCl [Buspar] 30 mg PO DAILY 12/28/16 [History] Clopidogrel [Plavix] 75 mg PO DAILY 12/28/16 [History] Fenofibrate Nanocrystallized [Triglide] 160 mg PO DAILY 12/28/16 [History] Insulin Glargine [Lantus] 60 unit SQ HS 12/28/16 [History] Lansoprazole [Prevacid] 30 mg PO DAILY 12/28/16 [History] Melatonin 10 mg PO HS PRN 12/28/16 [History] Nitroglycerin [Nitrostat] 0.4 mg SL Q5M PRN 12/28/16 [History] Ranolazine [Ranexa] 1,000 mg PO BID 12/28/16 [History] Terazosin HCl 2 mg PO DAILY 12/28/16 [History] Trazodone HCl 50 mg PO HS 12/28/16 [History] Venlafaxine XR (24 HR) [Effexor Xr] 150 mg PO DAILY 12/28/16 [History] Atorvastatin Calcium [Lipitor] 80 mg PO HS 10/30/17 [History] BuPROPion XL (24 HR) [Wellbutrin Xl] 300 mg PO DAILY 10/30/17 [History] Gabapentin [Neurontin] 800 mg PO TID 10/30/17 [History] Insulin LISPRO [Humalog] 0 - 20 unit SQ TID PRN #1 cartridge 11/01/17 [Rx] Isosorbide MONOnitrate (24 HR) [Imdur] 120 mg PO DAILY #30 tab.er.24h 11/01/17 [ Rx] Metoprolol [Lopressor] 12.5 mg PO BID #30 tablet 11/01/17 [Rx] Allergies/Adverse Reactions: 3 Allergy/AdvReac Type Severity Reaction Status Date / Time acetaminophen [From Percocet] Allergy Hives Verified 12/28/16 08:52 Oxycodone [From Percocet] Allergy Hives Verified 12/28/16 08:52 Hydromorphone [From Dilaudid] AdvReac Chest Pain Verified 12/28/16 08:52 Date of admission: 10/29/17 20:46 Primary care physician: Andre Aquino MD Consults: 10/29/17 21:47 Consult to Critical Care [CONS] Routine Consulting Provider: Pulm Crit Care & Sleep Dorothy Reason for Consult: Cardiogenic shock Call Completed: No 10/30/17 06:47 Consult to Cardiology [CONS] Routine Comment: Consulting Provider: Cardiology Dorothy Reason for Consult: NSTEMI, Called by ED Call Completed: Yes Discharging clinician: Andre Kessler Anticipated date of discharge: 11/01/17 - Constitutional Vitals: Temp Pulse Resp BP Pulse Ox 97.7 F 79 18 136/91 95 11/01/17 07:05 11/01/17 07:05 11/01/17 07:05 11/01/17 07:05 11/01/17 07:05 General appearance: Present: cooperative, A&O X 3, pleasant, no acute distress, answers questions appropriately - Head Head exam: Present: atraumatic, normocephalic - Eye Eye exam: Present: PERRL, conjuntiva pink, sclera anicteric Pupils: Present: PERRL - ENT ENT exam: Present: mucous membranes moist, normal oropharynx - Neck Neck exam general surgery: Present: supple, trachea midline. Absent: lymphadenopathy - Respiratory Respiratory exam: Present: CTAB. Absent: accessory muscle use, rales, rhonchi, wheezes - Cardiovascular Cardiovascular exam: Present: RRR, +S1, +S2. Absent: diastolic murmur, gallop, rubs, systolic murmur - GI/Abdominal GI/Abdominal exam: Present: normal bowel sounds, soft, no peritoneal signs. Absent: distended, tenderness - Extremities Exam Extremities exam: Present: warm, radial pulses palpable and symmetrical. Absent : calf tenderness, cyanotic, pedal edema - Back Exam Back exam: Present: normal inspection. Absent: tenderness - Neurological Exam Neurological exam: Present: CN II-XII intact, oriented X3, no focal deficits. Absent: pronater drift, facial droop, speech deficit - Psychiatric Psychiatric exam: Present: normal affect, normal mood - Skin Skin exam: Present: dry, intact, normal color, warm - Patient Status Disposition: Home, Self-Care Condition: Critical Functional capacity at discharge: independent ambulation Overall status at discharge: patient is progressing back to baseline - Discharge Instructions Instructions: Metoprolol (By mouth), Insulin Lispro Protamine/Insulin Lispro ( Injection), Myocardial Infarction (DC), Left Heart Catheterization (DC) Follow Up With: Andre Aquino MD [Primary Care Provider] - 11/06/17 1:00 pm Forms: ED Satisfaction Letter - Diet and Activity Activity: increase activity as tolerated, resume usual activities as tolerated, wear oxygen at night Diet: diabetic diet (cardiac diet) <Scott Hua Gaurav - Last Filed: 11/01/17 12:59> Date of Encounter: 11/01/17 - Discharge Diagnosis (1) NSTEMI (non-ST elevated myocardial infarction) Status: Acute (2) Diabetes Status: Chronic Qualifiers: Diabetes mellitus type: type 2 Diabetes mellitus halfway insulin use: unspecified terminal gauger insulin use status Diabetes mellitus complication status : with unspecified complications Qualified Code(s): E11.8 - Type 2 diabetes mellitus with unspecified complications (3) CAD (coronary artery disease) Status: Chronic Qualifiers: Coronary Disease-Associated Artery/Lesion type: unspecified vessel or lesion type [place] vs. transplanted heart: unspecified whether [place] or transplanted heart Associated angina: with unspecified angina Qualified Code (s): I25.119 - Atherosclerotic heart disease of [place] coronary artery with unspecified angina pectoris (4) Hypertension Status: Chronic Qualifiers: Hypertension type: unspecified Qualified Code(s): I10 - Essential (primary ) hypertension (5) NÉSTOR (acute kidney injury) Status: Resolved (6) DVT prophylaxis Status: Acute (7) Chronic respiratory failure with hypoxia Status: Acute Hospital course: Mr. Marquis is a 62 year old male - Time Spent with Patient Total time spent providing and/or coordinating discharge services: Date of admission: 10/29/17 20:46 Primary care physician: Andre Aquino MD Consults: 10/29/17 21:47 Consult to Critical Care [CONS] Routine Consulting Provider: Pulm Crit Care & Sleep Grady Reason for Consult: Cardiogenic shock Call Completed: No 10/30/17 06:47 Consult to Cardiology [CONS] Routine Comment: Consulting Provider: Cardiology Dorothy Reason for Consult: NSTEMI, Called by ED Call Completed: Yes 11/01/17 10:01 consult to painter airbrush [Consult to Nutrition] [CONS] Routine Comment: Heart healthy and DM diet education Consulting Provider: NUTRITION Reason for Dietary Consult: Diet Education - Constitutional Vitals: Temp Pulse Resp BP Pulse Ox 97.7 F 79 18 136/91 95 11/01/17 07:05 11/01/17 07:05 11/01/17 07:05 11/01/17 07:05 11/01/17 07:05 - Attending Attestation NSTEMI time spent: 40 min I examined this patient and my medical decision-making was reviewed with the Resident Physician. I agree with the documented findings, disposition and treatment plan as described except to the extent set forth below.
--- NOTE | 2017-11-01 11:32 | Cardiology Progress Note ---
Date of Encounter: 11/01/17 Time of Encounter: 11:30 Assessment and Plan (1) NSTEMI (non-ST elevated myocardial infarction) Current Visit: Yes Status: Acute Presents with c/o chest pain and hypotension. Found to have mild NÉSTOR and dehydration in the setting of known obstructive CAD. Troponin elevation up to 0.69. Despite hydration he continued to have chest pain . [facility] recommended yesterday. 0/3 patent bypass grafts. TRIMBLE-LAD atretic. Previous LAD stent patent. Left to right collaterals noted. SVG- OM1-OM2 chronically occluded with 100% stenosis in the LCX artery. SVG - PDA- PL branches occluded with 100% stenosis in lay RCA. Medical management recommended. TTE shows preserved EF. LVEF 60%. Moderate left ventricular diastolic dysfunction. Mild mitral regurgitation. Mild-moderate tricuspid regurgitation. No pulmonary hypertension by TR gradient, 29 mmHg. Patient home medications initially held due to dehydration and hypotension. He was hypertensive yesterday and medications restarted. Chest pain resolved. Low dose bb added. Continue asa, plavix, statin, bb, imdur and Ranexa. No complication from [facility]. Right groin dressing removed. No hematoma, redness, or drainage. Currently not a candidate for cardiac rehab in the setting of medical management, will re-consider in out-pt setting. Out-patient f/u will be scheduled in 2 weeks with [facility]. (2) CAD (coronary artery disease) Current Visit: Yes Status: Chronic See plan above. Qualifiers: Coronary Disease-Associated Artery/Lesion type: unspecified vessel or lesion type [place] vs. transplanted heart: unspecified whether [place] or transplanted heart Associated angina: with unspecified angina Qualified Code (s): I25.119 - Atherosclerotic heart disease of [place] coronary artery with unspecified angina pectoris Discussion w patient/family: The assessment and plan as outlined above was discussed with the patient and/or family members who expressed understanding and agreement. All questions were answered. Thank you for involving us in the care of your patient. Please call with any questions. Subjective Principal diagnosis: ELevated troponin. chest pain Interval history: Denies recurrent chest pain. Objective Vital Signs Temp Pulse Resp BP Pulse Ox 11/01/17 07:05 97.7 F 79 18 136/91 95 11/01/17 04:51 97.5 F L 81 18 112/74 94 11/01/17 01:06 97.7 F 69 16 103/52 94 10/31/17 21:53 98.5 F 73 16 135/79 93 10/31/17 16:23 97.8 F 75 18 141/78 97 10/31/17 14:30 85 151/75 10/31/17 13:30 90 151/75 10/31/17 13:00 80 154/93 10/31/17 12:45 86 169/89 10/31/17 12:30 88 163/94 10/31/17 12:12 82 124/80 Intake and Output 10/31/17 11/01/17 11/01/17 23:59 07:59 15:59 Intake Total 580 / 580 495 / 495 619 / 619 Output Total 0 / 0 Balance 580 / 580 495 / 495 619 / 619 Intake: IV Fluids 0 / 0 445 / 445 259 / 259 Heparin 25,000 UNIT/500 ML D5W 0 / 0 445 / 445 259 / 259 25,000 unit In 500 ml @ 10.2 UNIT/KG/HR 19.894 mls/hr IVC . Q24H MELONY Rx#:[id number] Oral 580 / 580 50 / 50 360 / 360 Output: Urine 0 / 0 Other: Meal Dinner Breakfast Percent of Meal Consumed 100% 95% # Voids 0 0 Weight 99.7 kg Blood Glucose* 186 170 Patient Weight 11/01/17 23:59 Weight 99.7 kg General: Conversant, No Apparent Distress HEENT: Atraumatic, Normocephaly, Mucus Membranes Moist Neck: No JVD, Normal carotid pulses Cardiac: Reg Rate and Rhythm, Normal S1 and S2, No Murmur Lungs: Normal Breath Sounds, No Wheeze, Rales, Rhonchi Neuro: Alert and responsive, No focal deficits noted Abdomen: Soft, Non-Tender Skin: No rashes noted on visualized skin Musculoskeletal: No Chest Wall Tenderness Extremities: No Clubbing, No Cyanosis, No Edema, Normal Pulses, Other (RLE dressing removed. ) Results 11/01/17 00:15 11/01/17 00:15 Lab Results 10/31/17 11/01/17 11/01/17 16:36 00:15 00:15 WBC 7.0 Hgb 12.1 L Hct 33.6 L Plt Count 263 APTT 29.3 D Sodium 138 Potassium 3.7 Chloride 103 Carbon Dioxide 27 BUN 13 Creatinine 0.83 Glucose 183 H Calcium 9.1 11/01/17 11/01/17 00:15 07:33 WBC Hgb Hct Plt Count APTT 137.7 H* D 103.4 H Sodium Potassium Chloride Carbon Dioxide BUN Creatinine Glucose Calcium - Imaging and Cardiology Echo: report reviewed Cardiac cath: report reviewed Consult Discharge Plan - Plan Instructions: Metoprolol (By mouth), Insulin Lispro Protamine/Insulin Lispro ( Injection), Myocardial Infarction (DC), Left Heart Catheterization (DC) Referrals: nAdre Aquino MD [Primary Care Provider] - 11/06/17 1:00 pm Prescriptions: Insulin LISPRO [Humalog] 0 - 20 unit SQ TID PRN #1 cartridge PRN Reason: SLIDING SCALE Isosorbide MONOnitrate (24 HR) [Imdur] 120 mg PO DAILY #30 tab.er.24h Metoprolol [Lopressor] 12.5 mg PO BID #30 tablet
--- NOTE | 2017-11-02 16:23 | Electrocardiograph Report ---
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
--- NOTE | 2017-11-02 16:32 | Electrocardiograph Report ---
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
--- NOTE | 2017-11-02 16:50 | Electrocardiograph Report ---
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
--- NOTE | 2017-11-03 18:14 | Electrocardiograph Report ---
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
== END 2017-11-01 11:47 | disposition home or self-care (01) | DRG 280 ==
LOC: EMEROO 15:25 → ICNU 20:46 → 2NENU 10-30 23:28
PROVIDERS: ADMIT Internal Medicine; ATTEND Internal Medicine Cardiovascular Disease

== ENCOUNTER 2022-03-15 04:40 | Inpatient (IN) ==
[2022-03-15] MEDS ORDERED: Naloxone 0.4 MG/ML INJ IVP PRN (07:51)
[2022-03-15] MEDS ORDERED: Acetaminophen 325 MG TABLET PO PRN (07:51)
[2022-03-15] MEDS ORDERED: Melatonin 3 MG TABLET PO PRN (07:51)
[2022-03-15] MEDS ORDERED: *HR* FentaNYL (PF) 100 MCG/2 ML VIAL IVP PRN ×2 (07:54→14:21)
[2022-03-15] MEDS ORDERED: Piperacillin/Tazobactam 3.375 GM in 0.9 % Sodium Chloride Mini Bag 100 ML IVPB SCH (08:00)
[2022-03-15] MEDS ORDERED: *HR* Dextrose 50 % in Water (Syg) 50 ML SYRINGE IVP PRN (10:10)
[2022-03-15] MEDS ORDERED: Dextrose Gel 15 GM/37.5 ML TUBE PO PRN ×2 (10:10)
[2022-03-15] MEDS ORDERED: D5% in Water 1,000 ML IVC PRN (10:10)
[2022-03-15] MEDS: Insulin LISPRO 300 UNITS/3 ML VIAL SUBQ SCH ×2 (11:00→21:23)
[2022-03-15] MEDS: Ringers Solution, Lactated 1,000 ML IVC SCH (11:00)
[2022-03-15 11:48] LABS: Clarity,Urine Turbid (Clear); Color,Urine Dark-Orange (Yellow)
[2022-03-15 12:13] LABS: Bacteria,Urine Present per hpf (None-Few); RBC,Urine TNTC per hpf (0-3); Squamous Epithelial Cell,Urine Present per hpf (None-Few); WBC,Urine Present per hpf (0-3)
[2022-03-15 13:34] LABS: Calcium 9.3 mg/dL (8.6-10.3); Potassium 3.9 mEq/L (3.5-5.1)
[2022-03-15] MEDS ORDERED: *HR* Rocuronium Bromide 50 MG/5 ML VIAL ONE (13:36)
[2022-03-15] MEDS ORDERED: *HR* Succinylcholine 200 MG/10 ML VIAL IVP ONE (13:36)
[2022-03-15] MEDS ORDERED: Ondansetron 4 MG/2 ML VIAL ONE (13:36)
[2022-03-15] MEDS ORDERED: *HR* Propofol 200 MG/20 ML VIAL IVP ONE (13:36)
[2022-03-15] MEDS ORDERED: *HR* FentaNYL (PF) 100 MCG/2 ML VIAL ONE (13:37)
[2022-03-15] MEDS ORDERED: Ondansetron 4 MG/2 ML VIAL IVP PRN (14:21)
[2022-03-15] MEDS ORDERED: Promethazine 6.25 MG in Water for inj. (sterile) 20 ML IVPB PRN (14:21)
[2022-03-15] MEDS ORDERED: Ringers Solution, Lactated 1,000 ML IVC SCH (15:05)
[2022-03-15] MEDS ORDERED: Lidocaine HCL 4 ML Topical Solution (Laryng-O-Jet Kit Sterile Pak) TP ONE (15:05)
[2022-03-15 16:32] LABS: Estimated Average Glucose 260 mg/dl; Hemoglobin A1C 10.7 %
[2022-03-15] MEDS: *HR* Heparin 5,000 UNIT/ML VIAL SQ SCH ×2 (16:37→21:05)
[2022-03-15] MEDS: MetroNIDAZOLE 500 MG/100 ML 500 MG/100 ML BAG IVPB SCH (16:37)
[2022-03-15] MEDS ORDERED: Cefepime HCl 2,000 MG in 0.9 % Sodium Chloride Mini Bag 100 ML IVPB SCH (18:00)
[2022-03-15 18:56] LABS: Sodium, Urine 11.5 mEq/L
[2022-03-16] MEDS: Insulin LISPRO 300 UNITS/3 ML VIAL SUBQ SCH ×5 (00:24→23:45)
[2022-03-16] MEDS: MetroNIDAZOLE 500 MG/100 ML 500 MG/100 ML BAG IVPB SCH ×3 (00:24→15:56)
[2022-03-16] MEDS: Ringers Solution, Lactated 1,000 ML IVC SCH ×3 (00:36→10:29)
[2022-03-16 02:04] LABS: Basophils % 0.1 %; Hematocrit 32.7 % (37.5-50.1); Hemoglobin 11.3 g/dL (12.9-16.9); Immature Granulocytes % 1.4 % (0-4); Lymphocytes # 0.9 K/mcL (0.6-4.6); Lymphocytes % 6.4 %; Mean Corpuscular HGB Conc 34.6 g/dL (31.6-35.5); Mean Corpuscular Hemoglobin 32.8 pg (28.0-33.3); Mean Corpuscular Volume 94.8 fL (83.0-100.0); Mean Platelet Volume 10.9 fL (9.4-12.4); Monocytes # 0.5 K/mcL (0.0-1.3); Monocytes % 3.4 %; Neutrophils # 12.4 K/mcL (1.6-8.9); Platelet Count 127 K/mcL (140-400); Red Blood Count 3.45 M/mcL (4.19-5.50); Red Cell Distribution Width 13.2 % (11.5-14.5); Segmented Neutrophils % 88.7 %
[2022-03-16 02:28] LABS: Albumin 2.8 g/dL (3.5-5.7); Albumin/Globulin Ratio 0.8 (1.1-2.2); Calcium 9.3 mg/dL (8.6-10.3); Globulin 3.4 g/dL (2.4-3.5); Potassium 4.4 mEq/L (3.5-5.1); Total Protein 6.2 g/dL (6.4-8.9)
[2022-03-16] MEDS ORDERED: Haloperidol Lactate 5 MG/ML VIAL IVP ONE (03:50)
[2022-03-16] MEDS: Cefepime HCl 2,000 MG in Water for inj. (sterile) 20 ML IVP SCH ×2 (06:02→18:46)
[2022-03-16] MEDS: *HR* Heparin 5,000 UNIT/ML VIAL SQ SCH ×3 (06:02→22:00)
[2022-03-16] MEDS ORDERED: Insulin DETEMIR 100 UNIT/ML X5UNITS SUBQ ONE (10:17)
[2022-03-16] MEDS: Ondansetron 4 MG/2 ML VIAL IVP PRN ×2 (14:25→22:00)
[2022-03-16] MEDS: Insulin DETEMIR 100 UNIT/ML X5UNITS SUBQ SCH (22:54)
[2022-03-17] MEDS: MetroNIDAZOLE 500 MG/100 ML 500 MG/100 ML BAG IVPB SCH ×3 (00:03→17:22)
[2022-03-17] MEDS: Ringers Solution, Lactated 1,000 ML IVC SCH ×3 (00:56→11:30)
[2022-03-17 03:57] LABS: Basophils % 0.1 %; Eosinophils % 0.1 %; Hematocrit 32.9 % (37.5-50.1); Hemoglobin 11.5 g/dL (12.9-16.9); Immature Granulocytes % 0.6 % (0-4); Lymphocytes # 1.3 K/mcL (0.6-4.6); Lymphocytes % 6.6 %; Mean Corpuscular Hemoglobin 31.9 pg (28.0-33.3); Mean Corpuscular Volume 91.1 fL (83.0-100.0); Mean Platelet Volume 11.3 fL (9.4-12.4); Monocytes # 0.9 K/mcL (0.0-1.3); Monocytes % 4.6 %; Neutrophils # 17.4 K/mcL (1.6-8.9); Platelet Count 169 K/mcL (140-400); Red Blood Count 3.61 M/mcL (4.19-5.50); Red Cell Distribution Width 12.6 % (11.5-14.5); White Blood Count 19.8 K/mcL (4.3-11.1)
[2022-03-17 04:15] LABS: Albumin 2.9 g/dL (3.5-5.7); Albumin/Globulin Ratio 0.8 (1.1-2.2); Bilirubin,Total 3.8 mg/dL (0.3-1.0); Calcium 9.7 mg/dL (8.6-10.3); Globulin 3.6 g/dL (2.4-3.5); Potassium 3.6 mEq/L (3.5-5.1); Total Protein 6.5 g/dL (6.4-8.9)
[2022-03-17] MEDS: Insulin LISPRO 300 UNITS/3 ML VIAL SUBQ SCH ×3 (05:05→17:25)
[2022-03-17] MEDS: Cefepime HCl 2,000 MG in Water for inj. (sterile) 20 ML IVP SCH ×2 (05:19→18:52)
[2022-03-17] MEDS: *HR* Heparin 5,000 UNIT/ML VIAL SQ SCH ×3 (05:20→22:49)
[2022-03-17] MEDS: risperiDONE 1 MG TABLET PO SCH (09:53)
[2022-03-17] MEDS: BuPROPion XL (24 HR) 150 MG TABLET PO SCH (09:53)
[2022-03-17 14:07] LABS: Basophils % 0.1 %; Eosinophils % 0.1 %; Hemoglobin 12.6 g/dL (12.9-16.9); Immature Granulocytes % 0.6 % (0-4); Immature Platelets 5.3 % (1.1-6.1); Lymphocytes # 1.1 K/mcL (0.6-4.6); Lymphocytes % 6.6 %; Mean Corpuscular Hemoglobin 32.1 pg (28.0-33.3); Mean Corpuscular Volume 91.6 fL (83.0-100.0); Mean Platelet Volume 10.9 fL (9.4-12.4); Monocytes # 0.9 K/mcL (0.0-1.3); Monocytes % 5.2 %; Platelet Count 166 K/mcL (140-400); Red Blood Count 3.93 M/mcL (4.19-5.50); Red Cell Distribution Width 12.5 % (11.5-14.5); Segmented Neutrophils % 87.4 %; White Blood Count 17.2 K/mcL (4.3-11.1)
[2022-03-17] MEDS: Insulin DETEMIR 100 UNIT/ML X5UNITS SUBQ SCH (22:49)
[2022-03-18 01:42] LABS: Basophils % 0.1 %; Eosinophils % 0.2 %; Hemoglobin 11.7 g/dL (12.9-16.9); Immature Granulocytes % 0.5 % (0-4); Lymphocytes # 1.1 K/mcL (0.6-4.6); Lymphocytes % 9.3 %; Mean Corpuscular HGB Conc 34.4 g/dL (31.6-35.5); Mean Corpuscular Hemoglobin 31.6 pg (28.0-33.3); Mean Corpuscular Volume 91.9 fL (83.0-100.0); Monocytes # 0.9 K/mcL (0.0-1.3); Monocytes % 7.4 %; Neutrophils # 9.5 K/mcL (1.6-8.9); Platelet Count 157 K/mcL (140-400); Red Cell Distribution Width 12.6 % (11.5-14.5); Segmented Neutrophils % 82.5 %; White Blood Count 11.5 K/mcL (4.3-11.1)
[2022-03-18 02:02] LABS: Alanine Aminotransferase 84 Units/L (7-52); Albumin/Globulin Ratio 0.8 (1.1-2.2); Alkaline Phosphatase 314 Units/L (34-104); Aspartate Amino Transferase 60 Units/L (13-39); BUN/Creatinine Ratio 31 (6-26); Bilirubin,Total 3.4 mg/dL (0.3-1.0); Blood Urea Nitrogen 28 mg/dL (8-23); Calcium 9.2 mg/dL (8.6-10.3); Carbon Dioxide 27 mEq/L (23-29); Chloride 101 mEq/L (98-107); Globulin 3.8 g/dL (2.4-3.5); Glucose 219 mg/dL (70-105); Osmolality,Calculated 292 (280-300); Potassium 3.5 mEq/L (3.5-5.1); Sodium 135 mEq/L (136-145); Total Protein 6.8 g/dL (6.4-8.9)
[2022-03-18] MEDS: MetroNIDAZOLE 500 MG/100 ML 500 MG/100 ML BAG IVPB SCH ×4 (04:53→23:36)
[2022-03-18] MEDS: Insulin LISPRO 300 UNITS/3 ML VIAL SUBQ SCH ×4 (04:54→17:20)
[2022-03-18] MEDS: Cefepime HCl 2,000 MG in Water for inj. (sterile) 20 ML IVP SCH ×2 (04:54→17:17)
[2022-03-18] MEDS: Ringers Solution, Lactated 1,000 ML IVC SCH ×2 (04:55→17:19)
[2022-03-18] MEDS: *HR* Heparin 5,000 UNIT/ML VIAL SQ SCH ×3 (05:23→21:17)
[2022-03-18] MEDS: BuPROPion XL (24 HR) 150 MG TABLET PO SCH (09:46)
[2022-03-18] MEDS: risperiDONE 1 MG TABLET PO SCH (09:46)
[2022-03-18] MEDS ORDERED: Gadolinium Contrast Agent (WT Based) IV PRN (11:34)
[2022-03-18] MEDS: Nicotine 21 MG PATCH.TD24 TD SCH (13:05)
[2022-03-18 15:26] VITALS: PULSE 80
[2022-03-18] MEDS: Insulin DETEMIR 100 UNIT/ML X5UNITS SUBQ SCH (21:16)
[2022-03-19] MEDS ORDERED: Gabapentin 400 MG CAPSULE PO ONE
[2022-03-19] MEDS ORDERED: *HR* LORazepam 2 MG/ML VIAL IVP ONE (00:01)
[2022-03-19] MEDS: Insulin LISPRO 300 UNITS/3 ML VIAL SUBQ SCH ×4 (03:20→18:03)
[2022-03-19] MEDS: Ringers Solution, Lactated 1,000 ML IVC SCH ×2 (03:21→16:12)
[2022-03-19 05:17] LABS: Basophils % 0.2 %; Eosinophils % 0.5 %; Hematocrit 31.1 % (37.5-50.1); Hemoglobin 10.8 g/dL (12.9-16.9); Lymphocytes # 1.6 K/mcL (0.6-4.6); Lymphocytes % 17.6 %; Mean Corpuscular HGB Conc 34.7 g/dL (31.6-35.5); Mean Corpuscular Hemoglobin 31.6 pg (28.0-33.3); Mean Corpuscular Volume 90.9 fL (83.0-100.0); Mean Platelet Volume 10.7 fL (9.4-12.4); Monocytes # 1.3 K/mcL (0.0-1.3); Monocytes % 14.2 %; Neutrophils # 5.9 K/mcL (1.6-8.9); Platelet Count 151 K/mcL (140-400); Red Blood Count 3.42 M/mcL (4.19-5.50); Red Cell Distribution Width 12.8 % (11.5-14.5); Segmented Neutrophils % 66.5 %; White Blood Count 8.8 K/mcL (4.3-11.1)
[2022-03-19] MEDS: Cefepime HCl 2,000 MG in Water for inj. (sterile) 20 ML IVP SCH ×2 (05:26→17:57)
[2022-03-19] MEDS: *HR* Heparin 5,000 UNIT/ML VIAL SQ SCH ×2 (05:26→12:54)
[2022-03-19 05:39] LABS: Alanine Aminotransferase 67 Units/L (7-52); Albumin 2.9 g/dL (3.5-5.7); Albumin/Globulin Ratio 0.8 (1.1-2.2); Alkaline Phosphatase 330 Units/L (34-104); Aspartate Amino Transferase 44 Units/L (13-39); BUN/Creatinine Ratio 23 (6-26); Bilirubin,Total 3.3 mg/dL (0.3-1.0); Blood Urea Nitrogen 18 mg/dL (8-23); Calcium 8.8 mg/dL (8.6-10.3); Carbon Dioxide 28 mEq/L (23-29); Chloride 102 mEq/L (98-107); Globulin 3.6 g/dL (2.4-3.5); Glucose 90 mg/dL (70-105); Osmolality,Calculated 281 (280-300); Potassium 3.3 mEq/L (3.5-5.1); Sodium 135 mEq/L (136-145); Total Protein 6.5 g/dL (6.4-8.9)
[2022-03-19] MEDS: BuPROPion XL (24 HR) 150 MG TABLET PO SCH (08:50)
[2022-03-19] MEDS: risperiDONE 1 MG TABLET PO SCH (08:50)
[2022-03-19] MEDS: Nicotine 21 MG PATCH.TD24 TD SCH (08:54)
[2022-03-19] MEDS: MetroNIDAZOLE 500 MG/100 ML 500 MG/100 ML BAG IVPB SCH ×2 (08:55→16:13)
[2022-03-19 16:34] VITALS: BP 129/77; TEMP 98.4; O2SAT 99
[2022-03-19] MEDS ORDERED: Insulin DETEMIR 100 UNIT/ML X5UNITS SUBQ SCH (21:00)
== END 2022-03-19 20:00 | disposition home or self-care (01) | DRG 853 ==
LOC: 2NNU → SUATTDRO 06:21 → 2ANU 03-16 19:09
PROVIDERS: ADMIT Internal Medicine; ATTEND Internal Medicine